=== PATIENT | male | born 1940 | race Caucasian/White ===

== ENCOUNTER 2019-05-20 13:28 | Outpatient (REF) | payer MEDICARE, OTHER, SELFPAY ==
[2019-05-20 14:24] LABS: HCT 48.1 % (40.0-50.0); HGB 16.7 g/dL (13.5-17.5); Mean Corp. HGB Concentration 34.7 g/dL (32.0-36.0); Mean Corpuscular Hemoglobin 31.1 pg (27.0-33.0); Mean Corpuscular Volume 89.6 fL (80-95); Mean Platelet Volume 10.4 fL (8.0-11.0); Platelet Count 230 x1000/uL (130-400); RBC 5.37 m/cumm (4.50-6.00); RBC Distribution Width 12.7 % (11.8-14.1); White Blood Cell Count 7.94 k/cumm (4.4-10.8)
[2019-05-20 14:40] LABS: Hemoglobin A1C 5.7 % (4.5-6.2)
[2019-05-20 22:07] LABS: ALT 39 U/L (12-78); AST 28 U/L (15-37); Alkaline Phosphatase 74 U/L (46-116); Anion Gap 12.1 mmol/L (3-11); BUN 21 mg/dL (7-18); Bilirubin, Total 0.6 mg/dL (0.2-1.0); CO2 23.9 mmol/L (21.0-32.0); CREATININE 1.19 mg/dL (0.70-1.30); Chloride 108 mmol/L (98-107); Estimated GFR 59.12 (mL/min/1.73m2); Folate 15.4 ng/mL (8.6-20.0); Glucose 130 mg/dL (70-100); Potassium 4.7 mmol/L (3.5-5.1); Sodium 144 mmol/L (136-145); Total Protein 6.9 g/dL (6.4-8.2); Vitamin B12 836 pg/mL (193-986)
== END 2019-05-20 13:48 ==
LOC: NCHCN 13:28
PROVIDERS: PCP Family Medicine; Visit Provider Family Medicine
DX: R53.83 Other fatigue (principal); R42 Dizziness and giddiness; R73.09 Other abnormal glucose
CPT/HCPCS: 80053; 85027; 82607; 82746; 83036

== ENCOUNTER 2020-02-14 13:47 | Outpatient (REF) | payer MEDICARE, OTHER, SELFPAY ==
[2020-02-15 09:45] LABS: PSA, Diagnostic 2.6 ng/mL (0.0-6.5)
== END 2020-02-14 14:07 ==
LOC: NCHCN 13:47
PROVIDERS: PCP Family Medicine; Visit Provider Family Medicine
DX: R36.1 Hematospermia (principal); Z12.5 Encounter for screening for malignant neoplasm of prostate
CPT/HCPCS: 84153

== ENCOUNTER 2020-05-09 15:21 | Outpatient (REF) | payer MEDICARE, OTHER, SELFPAY ==
[2020-05-09 15:49] LABS: Anion Gap 9.6 mmol/L (3-11); BUN 20 mg/dL (7-18); CO2 26.4 mmol/L (21.0-32.0); CREATININE 1.12 mg/dL (0.70-1.30); Calcium 9.6 mg/dL (8.5-10.1); Chloride 105 mmol/L (98-107); Glucose 141 mg/dL (74-106); Potassium 4.6 mmol/L (3.5-5.1); Sodium 141 mmol/L (136-145)
[2020-05-09 16:23] LABS: Hemoglobin A1C 5.8 % (3.8-5.6)
== END 2020-05-09 15:41 ==
LOC: NCHCN 15:21
PROVIDERS: PCP Family Medicine; Visit Provider Family Medicine
DX: I10 Essential (primary) hypertension (principal); R73.09 Other abnormal glucose
CPT/HCPCS: 80048; 83036

== ENCOUNTER 2021-05-10 02:52 | Outpatient (CLI) | payer MEDICARE, OTHER, SELFPAY ==
[2021-05-10 07:45] LABS: Abs Immature Grans 0.02 10^3/uL (0.0-0.06); Absolute Basophil Count 0.06 10^3/uL (0.0-0.2); Absolute Eosinophil Count 0.05 10^3/uL (0.0-0.7); Absolute Lymphocyte Count 1.17 10^3/uL (1.2-3.4); Absolute Monocyte Count 0.48 10^3/uL (0.1-0.8); Absolute Neutrophil Count 4.69 10^3/uL (1.2-6.7); Basophils % 0.9; Eosinophils % 0.8; HCT 47.3 % (40.0-50.0); HGB 16.1 g/dL (13.5-17.5); Immature Grans % 0.3; Lymphocytes % 18.1; MPV 9.6 fL (8.0-11.0); Monocytes % 7.4; Neutrophils % 72.5; Nucleated RBC 0 %; Platelet Count 217 10^3/uL (130-400); WBC 6.47 10^3/uL (4.4-10.8)
[2021-05-10 07:53] LABS: Bilirubin Negative (Negative); Blood Negative (Negative); Clarity Clear (Clear); Glucose Negative (Negative); Ketones Negative (Negative); Leukocyte Esterase Negative (Negative); Nitrite Negative (Negative); Specific Gravity 1.025 (1.005-1.025); Urobilinogen 0.2 EU/dL (Up TO 0.2); pH 5.5 (5-8)
[2021-05-10 07:55] LABS: Hemoglobin A1C 5.9 % (<5.7)
[2021-05-10 08:45] LABS: ALT 43 U/L (16-63); AST 26 U/L (15-37); Albumin 3.9 g/dL (3.4-5.0); Alkaline Phosphatase 68 U/L (46-116); Anion Gap 8.3 mmol/L (3-11); BUN 23 mg/dL (7-18); CO2 28.7 mmol/L (21.0-32.0); CREATININE 1.3 mg/dL (0.70-1.30); Calcium 9.3 mg/dL (8.5-10.1); Calculated LDL 98 mg/dL (<100); Chloride 106 mmol/L (98-107); Cholesterol 177 mg/dL (<200); Estimated GFR 53.12 (mL/min/1.73m2); Glucose 139 mg/dL (74-106); HDL Cholesterol 60 mg/dL (40-60); Potassium 4.4 mmol/L (3.5-5.1); Sodium 143 mmol/L (136-145); Total Protein 6.6 g/dL (6.4-8.2); Triglyceride 97 mg/dL (<150)
[2021-05-10 18:07] LABS: PSA, Screening 2.9 ng/mL (0.0-6.5)
== END 2021-05-10 02:53 | disposition home or self-care (01) ==
LOC: LBO 02:52
PROVIDERS: PCP Family Medicine; Visit Provider Family Medicine
DX: I10 Essential (primary) hypertension (principal); R73.03 Prediabetes; E78.5 Hyperlipidemia, unspecified; Z12.5 Encounter for screening for malignant neoplasm of prostate; Z00.00 Encounter for general adult medical examination without abnormal findings; E78.2 Mixed hyperlipidemia; R68.89 Other general symptoms and signs
CPT/HCPCS: 36415; 80053; 80061; 84153; 81003; 83036; 84443; 85025

== ENCOUNTER 2022-06-06 02:37 | Outpatient (CLI) | payer MEDICARE, OTHER, SELFPAY ==
[2022-06-06 07:22] LABS: Abs Immature Grans 0.02 10^3/uL (0.0-0.06); Absolute Basophil Count 0.03 10^3/uL (0.0-0.2); Absolute Eosinophil Count 0.06 10^3/uL (0.0-0.7); Absolute Lymphocyte Count 1.23 10^3/uL (1.2-3.4); Absolute Monocyte Count 0.57 10^3/uL (0.1-0.8); Absolute Neutrophil Count 5.11 10^3/uL (1.2-6.7); Basophils % 0.4; Eosinophils % 0.9; HCT 45.5 % (40.0-50.0); HGB 16.1 g/dL (13.5-17.5); Immature Grans % 0.3; Lymphocytes % 17.5; MCH 31.3 pg (27.0-33.0); MCHC 35.4 % (32.0-36.0); MCV 88 fL (80-95); MPV 9.5 fL (8.0-11.0); Monocytes % 8.1; Neutrophils % 72.8; Platelet Count 201 10^3/uL (130-400); RBC 5.15 10^6/uL (4.36-5.78); RDW 12.1 % (11.8-14.1); RDW-SD 39.1 fL; WBC 7.02 10^3/uL (4.4-10.8)
[2022-06-06 08:02] LABS: Hemoglobin A1C 5.7 % (<5.7)
[2022-06-06 09:00] LABS: Anion Gap 10.2 mmol/L (3-11); BUN 19 mg/dL (7-18); CO2 26.8 mmol/L (21.0-32.0); CREATININE 1.2 mg/dL (0.70-1.30); Calcium 9.1 mg/dL (8.5-10.1); Calculated LDL 84 mg/dL (<100); Chloride 108 mmol/L (98-107); Cholesterol 155 mg/dL (<200); Estimated GFR 58.11 (mL/min/1.73m2); Glucose 138 mg/dL (74-106); HDL Cholesterol 51 mg/dL (40-60); Potassium 3.9 mmol/L (3.5-5.1); Sodium 145 mmol/L (136-145); Triglyceride 101 mg/dL (<150)
== END 2022-06-06 02:38 | disposition home or self-care (01) ==
LOC: LBO 02:37
PROVIDERS: PCP Family Medicine; Visit Provider Family Medicine
DX: I10 Essential (primary) hypertension (principal); R73.03 Prediabetes; E78.5 Hyperlipidemia, unspecified
CPT/HCPCS: 36415; 80048; 80061; 83036; 85025

== ENCOUNTER → 2022-07-09 01:09 | Outpatient (CLI) | payer MEDICARE, OTHER, SELFPAY ==
--- NOTE | 2022-07-09 | DI.US_ITS ---
APPROVED REPORT EXAM: Comprehensive 2D, Doppler, and color-flow Echocardiogram Patient Location: Out-Patient Quality Control Checker: Jenna Fonseca RDCS (AE) Indications: Systolic heart murmur Other Information Study Quality: Adequate Conclusion Normal left ventricular wall thickness and chamber size. Estimated ejection fraction is 59%. Wall m otion is normal Normal right ventricular size and systolic function Both atria are normal in size Aortic valve is calcified, probably trileaflet. There is severe aortic stenosis with a peak gradient of 69, mean 44 mmHg. Calculated aortic valve area 0.87 cm??. There is trace aortic regurgitation Normal mitral valve with trace regurgitation Normal tricuspid valve with trace regurgitation. 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 The left ventricular systolic function is normal. The left ventric ular ejection fraction is within the normal range. There is normal left ventricular wall thickness. T here is normal LV segmental wall motion. There is no ventricular septal defect visualized. LVEF is 59 %. Right Ventricle The right ventricle is normal size. The right ventricular systolic function is normal. The RVSP is 29 .1 mmHg. Atria The left atrium size is normal. The right atrium size is normal. The interatrial septum is intact wit h no evidence for an atrial septal defect. Aortic Valve Aortic valve is calcified. Aortic valve is probably trileaflet. Severe aortic stenosis. Peak aortic v alve gradient is69.0_mmHg. Highest mean aortic valve gradient is 43.7mmHg. Calculated ANU by the cont inuity equation is .87cm2. Trace aortic regurgitation. Mitral Valve The mitral valve is normal in structure. No evidence of mitral valve stenosis. Trace mitral regurgita tion. Tricuspid Valve The tricuspid valve is normal in structure. There is no tricuspid valve stenosis. Trace tricuspid reg urgitation. Pulmonic Valve Pulmonic valve is not well visualized. There is no pulmonic valvular stenosis. There is no pulmonic v alvular regurgitation. Great Vessels The aortic root is normal in size. The ascending aorta is mildly dilated. Aortic arch is normal in ca liber. IVC is normal in size and collapses >50% with inspiration. Pericardium There is no pericardial effusion. 2D Dimensions IVSD d PLAX 1.04 cm M: 0.6-1.2 LV Vol A2C d MOD 95.8 mL LVPW d PLAX 1.02 cm M: 0.6 - 1.2 LV Vol A4C d MOD 102.5 mL LVID d PLAX 5.03 cm M: 4.2 - 5.8 LA vol/ BSA A2C s A-L 25.2 mL/m2 LVDs 3.55 cm M: 2.5 - 4.0 LA vol/ BSA A4C s A-L 19.7 mL/m2 Ao Root d 2.81 cm M: 3.1 - 3.7 LA Vol/ BSA Biplane s A-L 22.3 mL/m2 RA Area A4C 13.91 cm2 LA Area A4C s MOD 16.06 cm2 RA Vol/ BSA A4C s A-L 14.9 mL/m2 LA Area A2C s MOD 18.18 cm2 Ao Asc Diam d 3.90 cm M: 2.6 - 3.4 LV EF A4C MOD 58.1 % LV EF Teichholz 55.7 % LV EF A2C MOD 59.4 % LVEF (Ramon's) 59.94 % M: 52 - 72 LV EF Biplane MOD 59.9 % LV Volume 75.19 mL M: 62 - 150 SV 61.35 mL LV Volume Index 35.30 mL/m2 M: 34 - 74 SV Index 28.79 mL/m2 LV Vol Biplane MOD 102.4 mL FS 29.15 % M-Mode TAPSE 2.90 cm (M/F) >1.7 LV Diastology MV E' medial 0.072 (>0.07 m/s) E/A Ratio 0.5 LV E/e MED 7.80 (<14) MV E Vmax 0.56 (0.4-1.3 m/s) MV E' lateral 0.093 (>0.1 m/s) MV A Vmax 1.05 (0.4-1.3 m/s) LV E/e LAT 6.00 (<14) MV E/A Ratio 0.52 MV E/E' medial 7.82 MV E/E' lateral 6.04 Aortic Valve LVOT Area 3.57 cm2 AoV Area Vmax 0.87 cm2 LVOT Vmax 1.01 m/s AoV Area/ BSA (Vmax) 0.41 cm2/m2 LVOT Mean Steve. 0.65 m/s ANU Mean Steve. 0.73 cm2 LVOT Peak Grad 4.1 mmHg ANU Mean Steve. Index 0.34 cm2/m2 LVOT Mean Grad 2.0 mmHg AR DT 1758 msec LVOT VTI 0.213 m AR PHT 510 msec LVOT Diam s 2.10 cm AoV Vmax 4.15 m/s Velocity Ratio 0.24 AoV Mean Steve. 3.19 m/s AoV Peak Grad 69.0 mmHg LVOT SV 75.95 mL AoV Mean Grad 43.7 mmHg AoV VTI 0.821 m AoV Area VTI 0.92 cm2 AoV Area/ BSA (VTI) 0.43 cm/m2 Mitral Valve MV DT 500 (160-240 msec) MV PHT 145 msec MV Area PHT 1.52 cm2 MV VTI 0.242 m MV Area VTI 3.14 (4.0-6.0 cm2) Pulmonary Valve PV Vmax 1.35 (0.5-1.5 m/s) RVOT Peak Gr. 4.24 mmHg PV Peak Grad 7.3 mmHg RVOT Mean Gr. 1.95 mmHg PV Mean Grad 4.2 mmHg RVOT VTI 0.161 m PV VTI 0.222 m RVOT Vmax 1.03 m/s Tricuspid Valve TR Peak Grad 26.1 mmHg TR Vmax 2.56 m/s RA Pressure 3.00 mmHg RVSP (TR) 29.1 mmHg
== END ==
PROVIDERS: PCP Family Medicine; Visit Provider Family Medicine
DX: R01.1 Cardiac murmur, unspecified (principal)
CPT/HCPCS: 93306

== ENCOUNTER 2023-06-09 15:21 | Outpatient (CLI) | payer MEDICARE, OTHER, SELFPAY ==
[2023-06-09 12:13] LABS: Abs Immature Grans 0.01 10^3/uL (0.0-0.06); Absolute Basophil Count 0.07 10^3/uL (0.0-0.2); Absolute Eosinophil Count 0.06 10^3/uL (0.0-0.7); Absolute Lymphocyte Count 1.03 10^3/uL (1.2-3.4); Absolute Neutrophil Count 5.03 10^3/uL (1.2-6.7); Eosinophils % 0.9; HCT 45.7 % (40.0-50.0); Immature Grans % 0.1; Lymphocytes % 15.4; MCH 31.4 pg (27.0-33.0); MCV 90 fL (80-95); MPV 10.3 fL (8.0-11.0); Monocytes % 7.5; Neutrophils % 75.1; Platelet Count 174 10^3/uL (130-400); RDW 12.4 % (11.8-14.1); RDW-SD 40.6 fL
[2023-06-09 13:03] LABS: Hemoglobin A1C 5.8 % (<5.7)
[2023-06-09 13:04] LABS: ALT 37 U/L (16-63); AST 22 U/L (15-37); Albumin 3.7 g/dL (3.4-5.0); Alkaline Phosphatase 61 U/L (46-116); Anion Gap 9.4 mmol/L (3-11); BUN 28 mg/dL (7-18); CO2 25.6 mmol/L (21.0-32.0); CREATININE 1.5 mg/dL (0.70-1.30); Calcium 9.4 mg/dL (8.5-10.1); Chloride 108 mmol/L (98-107); Estimated GFR 46.19 (mL/min/1.73m2); Glucose 148 mg/dL (74-106); Potassium 4.2 mmol/L (3.5-5.1); Sodium 143 mmol/L (136-145); TSH (W/Ref FT4) 1.54 uIU/mL (0.36-3.74); Total Protein 6.7 g/dL (6.4-8.2)
[2023-06-10 10:37] LABS: PSA, Screening 3.4 ng/mL (<=6.5)
== END 2023-06-09 15:22 | disposition home or self-care (01) ==
LOC: LOS 15:26
PROVIDERS: PCP Family Medicine; Visit Provider Family Medicine
DX: R73.03 Prediabetes (principal); I10 Essential (primary) hypertension; E78.5 Hyperlipidemia, unspecified; Z00.00 Encounter for general adult medical examination without abnormal findings; C43.70 Malignant melanoma of unspecified lower limb, including hip
CPT/HCPCS: 36415; 80053; 84153; 83036; 84443; 85025

== ENCOUNTER 2023-07-09 02:46 | Outpatient (CLI) | payer MEDICARE, OTHER, SELFPAY ==
[2023-07-09 07:57] LABS: Abs Immature Grans 0.02 10^3/uL (0.0-0.06); Absolute Basophil Count 0.07 10^3/uL (0.0-0.2); Absolute Eosinophil Count 0.12 10^3/uL (0.0-0.7); Absolute Lymphocyte Count 1.45 10^3/uL (1.2-3.4); Absolute Monocyte Count 0.63 10^3/uL (0.1-0.8); Absolute Neutrophil Count 4.82 10^3/uL (1.2-6.7); Eosinophils % 1.7; HGB 15.9 g/dL (13.5-17.5); Immature Grans % 0.3; Lymphocytes % 20.4; MCH 30.5 pg (27.0-33.0); MCHC 34.6 % (32.0-36.0); MCV 88 fL (80-95); MPV 9.1 fL (8.0-11.0); Monocytes % 8.9; Neutrophils % 67.7; Platelet Count 170 10^3/uL (130-400); RBC 5.21 10^6/uL (4.36-5.78); RDW 12.4 % (11.8-14.1); RDW-SD 40.1 fL; WBC 7.11 10^3/uL (4.4-10.8)
[2023-07-09 08:40] LABS: ALT 32 U/L (16-63); AST 22 U/L (15-37); Albumin 3.7 g/dL (3.4-5.0); Alkaline Phosphatase 74 U/L (46-116); Anion Gap 8.9 mmol/L (3-11); BUN 27 mg/dL (7-18); Bilirubin, Total 0.5 mg/dL (0.2-1.0); CO2 26.1 mmol/L (21.0-32.0); CREATININE 1.4 mg/dL (0.70-1.30); Calcium 9.8 mg/dL (8.5-10.1); Chloride 110 mmol/L (98-107); Estimated GFR 50.18 (mL/min/1.73m2); Glucose 153 mg/dL (74-106); Potassium 4.4 mmol/L (3.5-5.1); Sodium 145 mmol/L (136-145); Total Protein 6.6 g/dL (6.4-8.2)
== END 2023-07-09 02:47 | disposition home or self-care (01) ==
LOC: LBO 02:46
PROVIDERS: PCP Family Medicine
DX: I35.0 Nonrheumatic aortic (valve) stenosis (principal)
CPT/HCPCS: 36415; 80053; 85025

== ENCOUNTER → 2023-07-31 08:45 | Outpatient (BNVA) | payer MEDICARE, OTHER, SELFPAY | PROVIDERS: PCP Family Medicine; Referring Provider Family Medicine; Visit Provider Nurse Practitioner Gerontology | DX: N40.1 Benign prostatic hyperplasia with lower urinary tract symptoms (principal); N32.89 Other specified disorders of bladder; N32.3 Diverticulum of bladder; I10 Essential (primary) hypertension | CPT/HCPCS: 81003; 99204 ==

== ENCOUNTER → 2023-09-10 03:20 | Outpatient (CLI) | payer MEDICARE, OTHER, SELFPAY ==
--- NOTE | 2023-09-10 08:00 | DI.CT_ITS ---
Exam(s) CT ABDOMEN PELVIS WO/W EXAM: CT ABDOMEN PELVIS WO/W CLINICAL HISTORY: abnl cta,bladder mass,bladder diverticula,n32.89,n32.3 TECHNIQUE: Imaging Protocol: Axial computed tomography images with coronal and sagittal reformatted images were created and reviewed CONTRAST MATERIAL: Intravenous: Omnipaque 350 Contrast volume:100 mL Oral: No COMPARISON: No exams were available for comparison FINDINGS: The examination is limited due to patient motion artifact. ABDOMEN: Lung Bases: Coronary artery calcification and/or stents. There is an aortic valve replacement. Liver: Normal density. There are several round homogeneously hypodense lesions in the liver consisten t with cysts. The largest measures 3.3 cm. Portal, Superior Mesenteric, and Splenic Veins: Unremarkable. Gallbladder and Biliary Tract: No radiodense calculus or dilation. Pancreas: Normal density, no abnormal calcifications or inflammatory process. Spleen: Normal. Adrenals: No masses seen. Kidneys: Normal size, contour and axis. No radiodense stones or obstructive uropathy. No masses seen. Abdominal Aorta: Abdominal portion non-dilated. Atherosclerosis. Bowel: There is diverticulosis of the colon but no evidence of acute diverticulitis. Appendix is unr emarkable. There is no evidence of bowel obstruction or bowel wall thickening. Peritoneal Cavity: No ascites, collection or mesenteric inflammatory response. No free air. Lymph Nodes: Within normal limits. Bones: Within normal limits for the patient's age. The patient has a left total hip replacement. Soft Tissues: Unremarkable. PELVIS: Bladder: There is diffuse thickening of the wall of the urinary bladder which is incompletely distend ed. There are at least 2 bladder diverticula present. One at the right lateral aspect and 1 at the anterior superior aspect of the urinary bladder. This may represent a urachal remnant. Reproductive Organs: The prostate gland is enlarged and impinges upon the base of the urinary bladder . Lymph Nodes: Within normal limits. Bones: Within normal limits for the patient's age. IMPRESSION: 1. There is an enlarged prostate gland which impinges upon the base of the urinary bladder. This may reflect prostatic hypertrophy but prostate mass cannot be excluded. 2. Urinary bladder diverticula. 3. Diffuse thickening of the wall of the urinary bladder. This may be due to chronic bladder outlet obstruction/neurogenic bladder. Cystitis or neoplasm cannot be entirely excluded. 4. No evidence of nephrolithiasis or hydronephrosis. 5. Hepatic cysts. Unexpected findings RADIATION DOSE DELIVERED: Total DLP Total DLP DATA REPOSITORY: All CT scans at this facility are submitted to the National Radiology Data Registry (NRDR) Dose Index Registry (DIR) with the [employer] (A[employer]). RADIATION OPTIMIZATION: All CT scans at this facility use at least one of these dose optimization te chniques: automated exposure control; mA and/or kV adjustment per patient size (includes targeted exa ms where dose is matched to clinical indication); or iterative reconstruction.
[2023-09-10] MEDS: Omnipaque 350 MG/ML 100 ML BTL IJ (12:23)
[2023-09-10] MEDS: Normal Saline - Diluent 50 ML VIAL 85 ML IJ (12:23)
[2023-09-10] MEDS: Normal Saline Flush 10 ML SYR IVP (12:24)
== END ==
PROVIDERS: PCP Family Medicine; Visit Provider Nurse Practitioner Gerontology
DX: N32.3 Diverticulum of bladder (principal); N32.89 Other specified disorders of bladder
CPT/HCPCS: 74178; J3490

== ENCOUNTER 2023-09-17 09:04 | Outpatient (RCR) | payer MEDICARE, OTHER, SELFPAY | END 2023-09-23 23:59 | disposition home or self-care (01) | LOC: CR 09:04 | PROVIDERS: PCP Family Medicine; Visit Provider Internal Medicine Cardiovascular Disease | DX: I35.0 Nonrheumatic aortic (valve) stenosis (principal); Z51.89 Encounter for other specified aftercare; Z95.4 Presence of other heart-valve replacement | CPT/HCPCS: S9472 ==

== ENCOUNTER 2023-09-19 15:59 | Outpatient (REF) | payer MEDICARE, OTHER, SELFPAY ==
[2023-09-19 15:06] LABS: Bilirubin Negative (Negative); Blood Trace-intact (Negative); Clarity Clear (Clear); Glucose 100 mg/dL (Negative); Ketones Negative (Negative); Leukocyte Esterase Small (Negative); Nitrite Negative (Negative); Specific Gravity 1.025 (1.005-1.025); Urobilinogen 0.2 mg/dL (Up to 0.2); pH 5.5 (5-8)
[2023-09-19 15:35] LABS: WBC >50 HPF (0-5)
[2023-09-19 15:36] LABS: Bacteria Moderate HPF (Negative); C & S Indicated? C&S Done As Ordered; Crystals Negative HPF (Negative); Epithelial Cells Rare HPF (Negative); Mucus Negative (Negative)
== END 2023-09-19 16:00 | disposition home or self-care (01) ==
LOC: NCHCN 15:59
PROVIDERS: PCP Family Medicine; Visit Provider Family Medicine
DX: R35.0 Frequency of micturition (principal); R50.9 Fever, unspecified
CPT/HCPCS: 87077; 81003; 81015; 87086; 87186

== ENCOUNTER → 2023-09-24 08:10 | Outpatient (BNVA) | payer MEDICARE, OTHER, SELFPAY | PROVIDERS: PCP Family Medicine; Referring Provider Family Medicine; Visit Provider Nurse Practitioner Gerontology | DX: R35.0 Frequency of micturition (principal); N32.3 Diverticulum of bladder; N32.89 Other specified disorders of bladder; I35.0 Nonrheumatic aortic (valve) stenosis | CPT/HCPCS: 99214 ==

== ENCOUNTER 2023-09-29 09:00 | Outpatient (RCR) | payer MEDICARE, OTHER, SELFPAY | END 2023-10-23 23:59 | disposition home or self-care (01) | LOC: CR 09:00 | PROVIDERS: PCP Family Medicine; Visit Provider Internal Medicine Cardiovascular Disease | DX: I25.10 Atherosclerotic heart disease of native coronary artery without angina pectoris (principal); Z95.2 Presence of prosthetic heart valve; Z51.89 Encounter for other specified aftercare | CPT/HCPCS: S9472 ==

== ENCOUNTER 2023-10-13 12:46 | Outpatient (REF) | payer MEDICARE, OTHER, SELFPAY ==
[2023-10-13 14:33] LABS: Bilirubin Negative (Negative); Blood Negative (Negative); Clarity Clear (Clear); Glucose Negative (Negative); Ketones Negative (Negative); Leukocyte Esterase Negative (Negative); Nitrite Negative (Negative); Specific Gravity 1.025 (1.005-1.025); Urobilinogen 0.2 mg/dL (Up to 0.2)
== END 2023-10-13 12:47 | disposition home or self-care (01) ==
LOC: LBN 12:46
PROVIDERS: PCP Family Medicine; Visit Provider Nurse Practitioner Gerontology
DX: R35.0 Frequency of micturition (principal)
CPT/HCPCS: 81003

== ENCOUNTER → 2023-12-02 08:39 | Outpatient (BNVA) | payer MEDICARE, OTHER, SELFPAY | PROVIDERS: PCP Family Medicine; Referring Provider Family Medicine; Visit Provider Urology | DX: N32.89 Other specified disorders of bladder (principal) | CPT/HCPCS: 52000; 81003 ==

== ENCOUNTER 2024-06-28 03:32 | Outpatient (CLI) | payer MEDICARE, OTHER, SELFPAY ==
[2024-06-28 12:59] LABS: Anion Gap 7.8 mmol/L (3-11); BUN 22 mg/dL (7-18); CO2 27.2 mmol/L (21.0-32.0); CREATININE 1.2 mg/dL (0.70-1.30); Calcium 9.9 mg/dL (8.5-10.1); Calculated LDL 89 mg/dL (<100); Chloride 106 mmol/L (98-107); Cholesterol 169 mg/dL (<200); Glucose 146 mg/dL (74-106); HDL Cholesterol 60 mg/dL (40-60); Potassium 4.1 mmol/L (3.5-5.1); Sodium 141 mmol/L (136-145); Triglyceride 104 mg/dL (<150)
[2024-06-29 17:57] LABS: Hemoglobin A1C 6.1 % (<5.7)
== END 2024-06-28 03:33 | disposition home or self-care (01) ==
LOC: LOS 03:32
PROVIDERS: PCP Family Medicine; Visit Provider Family Medicine
DX: E78.5 Hyperlipidemia, unspecified (principal); R73.03 Prediabetes
CPT/HCPCS: 36415; 80048; 80061; 83036

== ENCOUNTER 2025-03-16 02:30 | Outpatient (CLI) | payer MEDICARE, OTHER, SELFPAY ==
--- NOTE | 2025-03-16 | DI.RAD_ITS ---
Exam(s) XR HIP LT COMPLETE AP PELVIS EXAM: XR HIP LT COMPLETE AP PELVIS CLINICAL HISTORY: LT HIP PAIN,M25.552. TECHNIQUE: 2D digital imaging was performed. Three images were obtained. AP pelvis, AP left hip and lateral left hip views were obtained. COMPARISON: CT CT ABDOMEN PELVIS WO/W from 09/10/2023 FINDINGS: BONES: There are stable post operative changes of a left total hip arthroplasty present. No fracture or dislocation. JOINTS: The orthopedic hardware is in good position. No evidence of hardware loosening. SOFT TISSUE: Atherosclerotic calcification is present. IMPRESSION: Stable left total hip arthroplasty. DATA REPOSITORY: RADIATION DOSE DELIVERED:
== END 2025-03-16 02:50 ==
PROVIDERS: PCP Family Medicine; Visit Provider Family Medicine
DX: M25.552 Pain in left hip (principal); Z96.642 Presence of left artificial hip joint
CPT/HCPCS: 73502

== ENCOUNTER 2025-04-09 10:21 | Emergency (ER) | payer MEDICARE, OTHER, SELFPAY ==
[2025-04-09] VITALS (27 sets, daily range): BP systolic 157–204; BP diastolic 62–102; PULSE 52–99; RESP 11–28; TEMP 36.7; O2SAT 95–99
--- NOTE | 2025-04-09 10:15 | RT.EKG_ITS ---
APPROVED REPORT Exam: Resting ECG Reason for Exam: syncope Patient Location: E HR:63 bpm ECG Measurements Heart Rate 63 AXIS RI [id number] P [id number] QRSd 158 QRS 13 QT 484 T 135 QTc 498 Conclusion Atrial fibrillation...? atrial activity Left bundle branch block...QRSd>120, broad/notched R ST elevation secondary to IVCD...Multiple VCG criteria No Occlusion WI
--- NOTE | 2025-04-09 10:37 | ED.PROG_ITS ---
Date of service: 04/09/25 Time of Service: 10:37 Medical Decision Making I saw this patient in conjunction with his advanced practice provider. Please see her note for complete details. His echo is reassuring against acute heart failure. Quality:[facility] Health Related Social Needs: No Data to Display Discharge Plan Disposition Patient Disposition: Against Medical Advice Condition: Stable Discharge Details Clinical Impression: Atrial fibrillation, new onset, Episode of syncope Primary Care Provider: Asuncion Muñoz ED Provider: Cecilia Hubbard Home Meds and New Rx's Prescriptions: New Eliquis 5 mg tablet 5 mg PO BID Qty: 30 3RF Rx Instructions: Take 1 tablet by mouth twice daily Continued amlodipine 5 mg tablet 5 mg PO DAILY aspirin [Adult Aspirin Regimen] 81 mg tablet,delayed release (DR/EC) 81 mg PO DAILY simvastatin 40 mg tablet 40 mg PO DAILY losartan 25 mg tablet 25 mg PO DAILY multivitamin Tablet 1 tab PO DAILY glucosamine HCl 500 mg tablet 500 mg PO DAILY Rx Instructions: administer with a meal Discharge Instructions Instructions: Fainting, Adult ED, Atrial Fibrillation and Atrial Flutter ED Additional Instructions: At this time you have opted to leave the hospital AGAINST MEDICAL ADVICE. Admission for observation was recommended at this time which you declined. At this time no evidence for heart attack. However you do have a new cardiac dysrhythmia called atrial fibrillation. You also have a left bundle branch block and frequent PVCs. A CT was done of your chest which shows multiple lung nodules, a enlarged thyroid which also needs to be followed up with with an ultrasound. You will be given Eliquis which is a blood thinner to start 5 mg twice daily. Please follow-up with your primary care provider within the next 3 to 5 days to discuss these findings. If you change your mind or you have another syncopal or fainting episode please return to the emergency department. A Holter monitor for your heart was ordered they should be contacting you to place that. Follow up with primary care provider in 3-5 days. Return to ED sooner if any worsening or concerns. Thank you for allowing us to care for you today. Referrals: Asuncion Muñoz MD [Primary Care Provider] - 5 days Discharge Orders Other Ambulatory Orders: Holter Monitor (Routine) Timeframe: 3 Days Facility: [facility] - Location: Respiratory Therapy Ordered By: Cecilia Hubbard POCUS Exam (ED) Limited Cardiac Exam DATE OF EXAM: 04/09/25 TIME OF EXAM: 11:54 PROVIDER THAT PERFORMED THE STUDY: Reynaldo Pruett IS THIS A REPEAT EXAM DURING THIS ENCOUNTER: no REASON FOR EXAM: Syncope VISUALIZED STRUCTURES: Four Chambers, Left ventricle and LVOT VIEW OBTAINED: Apical 4-Chamber, Parasternal long-axis and Subxiphoid PERTINENT FINDINGS/IMPRESSION: No pericardial effusion and No RV dilation DIFFERENTIAL DIAGNOSES: Aortic outflow track less than 4 cm, good squeeze, RV less than LV, no significant pericardial effusion. No significant B-lines bilaterally. Exam complete
--- NOTE | 2025-04-09 10:57 | ED.GENADUL_ITS ---
Discharge Plan Disposition Patient Disposition: Against Medical Advice Condition: Stable Discharge Details Clinical Impression: Atrial fibrillation, new onset, Episode of syncope, Incidental lung nodule, Enlarged thyroid gland Primary Care Provider: Asuncion Muñoz ED Provider: Cecilia Hubbard Home Meds and New Rx's Prescriptions: New Eliquis 5 mg tablet 5 mg PO BID Qty: 30 3RF Rx Instructions: Take 1 tablet by mouth twice daily Continued amlodipine 5 mg tablet 5 mg PO DAILY aspirin [Adult Aspirin Regimen] 81 mg tablet,delayed release (DR/EC) 81 mg PO DAILY simvastatin 40 mg tablet 40 mg PO DAILY losartan 25 mg tablet 25 mg PO DAILY multivitamin Tablet 1 tab PO DAILY glucosamine HCl 500 mg tablet 500 mg PO DAILY Rx Instructions: administer with a meal Discharge Instructions Instructions: Fainting, Adult ED, Atrial Fibrillation and Atrial Flutter ED Additional Instructions: At this time you have opted to leave the hospital AGAINST MEDICAL ADVICE. Admission for observation was recommended at this time which you declined. At this time no evidence for heart attack. However you do have a new cardiac dysrhythmia called atrial fibrillation. You also have a left bundle branch block and frequent PVCs. A CT was done of your chest which shows multiple lung nodules, a enlarged thyroid which also needs to be followed up with with an ultrasound. You will be given Eliquis which is a blood thinner to start 5 mg twice daily. Please follow-up with your primary care provider within the next 3 to 5 days to discuss these findings. If you change your mind or you have another syncopal or fainting episode please return to the emergency department. A Holter monitor for your heart was ordered they should be contacting you to place that. Follow up with primary care provider in 3-5 days. Return to ED sooner if any worsening or concerns. Thank you for allowing us to care for you today. Referrals: Asuncion Muñoz MD [Primary Care Provider] - 5 days Discharge Orders Other Ambulatory Orders: Holter Monitor (Routine) Timeframe: 3 Days Facility: [facility] - Location: Respiratory Therapy Ordered By: Cecilia Hubbard [facility] General Mode of arrival: ambulatory . Date/Time Provider Initiated Documentation: 04/09/25 10:33 . Limitations to Documentation: no limitations . Information obtained by: patient, RN notes reviewed and old records reviewed . HPI Narrative: 84-year-old male with a past medical history of a aortic valve replacement presents to the ER company by his son after an apparent episode where he became unresponsive while doing some yard work. Patient states he sat down and was feeling little tired and then does not remember people trying to wake him up. They did call 911 EMS was on scene at that time patient had woken up and was feeling better. Patient states that he was initially just a little lightheaded but denies any chest pain shortness of breath, headache blurry vision weakness tingling or any other associated symptoms. According to the family he was sitting slumped over not responding to his name being called for approximately a minute. He did take his normal medications this morning. On arrival he is ANO x 4 denying any complaints at this time. Related Data Home Medications ?Medication ?Instructions ?Recorded ?Confirmed glucosamine HCl 500 mg tablet 500 mg PO DAILY 07/29/23 04/09/25 losartan 25 mg tablet 25 mg PO DAILY 07/29/23 04/09/25 multivitamin 1 tab PO DAILY 07/29/23 04/09/25 simvastatin 40 mg tablet 40 mg PO DAILY 07/29/23 04/09/25 amlodipine 5 mg tablet 5 mg PO DAILY 09/24/23 04/09/25 aspirin 81 mg tablet,delayed 81 mg PO DAILY 03/17/25 04/09/25 release (Adult Aspirin Regimen) apixaban 5 mg tablet (Eliquis) 5 mg PO BID Atrial Fibrillation 04/09/25 #30 tabs Previous Rx's ?Medication ?Instructions ?Recorded apixaban 5 mg tablet (Eliquis) 5 mg PO BID Atrial Fibrillation 04/09/25 #30 tabs Allergies Allergy/AdvReac Type Severity Reaction Status Date / Time lisinopril Allergy Mild Unknown Verified 04/09/25 10:38 NSAIDS (Non-Steroidal Allergy Unknown Verified 04/09/25 10:38 Anti-Inflamma penicillin V (Penicillin V) Allergy Unknown Verified 04/09/25 10:38 General Stated Complaint: Dizzy/Sync DANIKA: 3 Review of Systems All systems reviewed & are unremarkable except as noted in HPI and below Constitutional Constitutional: Reports as per HPI and Denies headache(s) ENT Ears, Nose, Mouth, and Throat: Denies headache(s) Cardiovascular Cardiovascular: Denies chest pain and Reports syncope Neurologic Neurologic: Reports as per HPI, Reports syncope and Denies headache(s) Exam Narrative Exam Narrative: Constitutional: Alert and oriented x3. Appears stated age. Normal body habitus. Head: Normocephalic, no trauma. Eyes: Pupils PERRL, Red reflex noted, EOM's intact. Eyelids symmetrical without lesions, discharge, or swelling. ENT: Bilateral TM's WNL, External ear normal to inspection, no mastoid TTP, swelling, or erythema, Nasal turbinates WNL, no nasal discharge. Normal dentition, Posterior pharynx WNL, no exudate. Chest: Regular rate and rhythym with frequent PVCs, Normal S1, S2, distal pulses intact. Resp: Lungs clear to auscultation bilaterally, no wheezes, rales, or rhonchi. Abdomen: Soft, non-distended, Normoactive bowel sounds all 4 quads. Musculoskeletal: Normal gait, Moves all 4 extremities without difficulty. Skin: No suspicious rashes or lesions. Capillary refill less than 2 sec. Neurologic: Cranial nerves II-XII intact. Alert and oriented x 3. Motor: No deficits noted. Sensory: Intact bilaterally all 4 extremities. Hematologic/Lymphatic: No ecchymosis, no lymphadenopathy. Course Vital Signs Vital signs: Vital Signs Temperature 36.7 C 04/09/25 10:31 Pulse 69 04/09/25 10:31 Respiratory Rate 18 04/09/25 10:31 Blood Pressure 165/79 H 04/09/25 10:31 Pulse Oximetry 98 04/09/25 10:31 Temperature 36.7 C 04/09/25 10:31 Temperature Source Oral 04/09/25 10:31 Pulse 69 04/09/25 10:31 Respiratory Rate 18 04/09/25 10:31 Blood Pressure 165/79 H 04/09/25 10:31 Blood Pressure Position Sitting 04/09/25 10:31 Pulse Oximetry 98 04/09/25 10:31 Oxygen Delivery Method Room Air 04/09/25 10:31 Oxygen Flow Rate 0 04/09/25 10:31 Pain Level 0 04/09/25 10:31 Medical Decision Making 84-year-old male with a past medical history of a aortic valve replacement presents to the ER company by his son after an apparent episode where he became unresponsive while doing some yard work. Patient states he sat down and was feeling little tired and then does not remember people trying to wake him up. They did call 911 EMS was on scene at that time patient had woken up and was feeling better. Patient states that he was initially just a little lightheaded but denies any chest pain shortness of breath, headache blurry vision weakness tingling or any other associated symptoms. According to the family he was sitting slumped over not responding to his name being called for approximately a minute. He did take his normal medications this morning. On arrival he is ANO x 4 denying any complaints at this time. EKG was reviewed by myself and Dr. Pruett ER attending, no old EKG available for review in our system however there is no old EKG available from 39 years ago at [facility]. No recent EKG changes including atrial A-fib and frequent PVCs. Cardiac workup ordered including serial troponins, chest x-ray Initial troponin within normal limits is 13, no leukocytosis, sodium potassium within normal limits BUN 21 creatinine 1.3 GFR 54 glucose 216. Urinalysis shows trace ketones and glucose. Chest x-ray shows a density in the left lateral lung area recommending a CT scan of the chest with contrast. Will order that. Discussed with patient that I would like to speak with cardiology and they might recommend admission for observation. 1225: [facility] transfer center contacted: Cardiology to call me back. CT has resulted shows no evidence for PE there is multiple nodules in the lungs. Also noted is the ascending thoracic aorta measuring 4.6 x 4.3 cm. Another incidental finding including a left lobe thyroid gland which looks heterogenous and enlarged, they recommend a nonemergent thyroid ultrasound. TSH with refractory T4 added on the labs. Second troponin has come back flat at 13 1301: Yanet SINHA recommends Admission and Holter monitor upon discharge, she also recommends starting Eliquis 5mg BID, she doesn't recommend rate control at this time, but does recommend trending Troponins q6 hours. She recommends reconnecting if up-trending Troponins, or any changes in patient condition. Will order Eliquis and contact Hospitalist. Spoke with patient's daughter Halie and patient regarding CT findings, recommendation for admission and follow-up care and my discussion with cardiology. He is agreeable to be admitted into the hospital for observation at this time. I did discuss the multiple lung nodules and enlarged thyroid with them as well. Spoke with Dr. Rodriguez with Hospitalist who agrees to come and see patient for eval in ED. 1345: Dr. Rodriguez here in ED for eval. After extensive discussion and eval with Dr. Rodriguez with patient and family I was informed that patient is requesting to go home. I did verify with patient's daughter and patient that they will be leaving AGAINST MEDICAL ADVICE as they would prefer to continue the work up at an outpatient basis. I did encourage them to stay and discussed risks versus benefits. Will discharge them with Eliquis and will order a outpatient Holter monitor. Patient requesting to leave AMA. The patient appears clinically sober and is not under the influence of any known substances. Discussed risks and benefits with patient. Patient verbalizes understanding of situation and the risks of leaving including worsening condition, developing disability, including but not limited to . Discussed results of labs and imaging, if they were performed and recommendations for further treatment and/or observation. The patient verbalizes understanding of the results discussed. Every effort was made to involve family and situation discussed. At this time patient has opted to leave against medical advice. Patient is alert and oriented and has the capacity to make own decisions. This text was generated using Edvertation system, please disregard any oddities of phrase or misspellings. Medical Records Medical records reviewed: Yes I reviewed the patient's medical records. Imaging Data Radiologic Study: Imaging: X-Ray Radiologist's impression: CLINICAL HISTORY: Syncope TECHNIQUE: 2D digital imaging was performed of the chest. Two images were obtained. PA and lateral views were obtained. COMPARISON: No exams were available for comparison FINDINGS: MEDIASTINUM: Normal. HEART: Normal. There is an aortic valve replacement. PULMONARY VASCULATURE: Normal. LUNGS: There is a 1.2 cm ovoid density in the lateral aspect of the left mid lung on the frontal view. No focal consolidating infiltrates are present. PLEURAL SPACE: No pleural effusion or pneumothorax. BONE:Within normal limits for the patient's age. OTHER FINDINGS:Normal. IMPRESSION: 1. No acute pulmonary findings. 2. 1.2 cm ovoid density in the left mid lung. A CT scan of the chest with contrast is recommended for further evaluation. Radiologic Study #2: Imaging: CT Scan Radiologist's impression: FINDINGS: Tracheobronchial tree: Patent where visualized. No bronchiectasis. Pulmonary parenchyma: There is a 1.2 x 1.2 cm nodule in the lateral aspect of the left upper lobe (series 12, image 81). This corresponds to the finding on the chest x-ray. There is a 0.9 x 0.8 cm nodule in the right lower lobe (series 12, image 97). There is a 5 mm nodule in the left lower lobe (series 12, image 108). The nodules are homogeneous and show no internal calcification or enh ancement. No focal consolidating infiltrates are present. Pulmonary Arteries: No evidence of filling defect to suggest pulmonary emboli. Mediastinum and Niru: No dominant adenopathy or fluid collection. The esophagus is unremarkable. Visualized thyroid gland: The left lobe of the thyroid gland is enlarged and extends into the superior mediastinum. It is heterogeneous with a suggestion of a large nodule. Nonemergent thyroid ultrasound is requested for further evaluation. Pleura: No effusion or pneumothorax. Heart: The heart is not dilated. Coronary artery calcification is present. There is an aortic valve replacement. No pericardial effusion. Aorta: The ascending thoracic aorta measures 4.6 x 4.3 cm. Atherosclerotic calcification is present. Due to the timing of the bolus, the thoracic aorta is suboptimally opacified for evaluation of dissection. Upper abdomen: There are stable hepatic cysts. No follow-up is recommended. Soft tissues: Unremarkable. Bones: Within normal limits for the patient's age.No significant changes are seen in the bones. IMPRESSION: 1. No evidence of a pulmonary embolism. 2. Ascending thoracic aorta measures 4.6 x 4.3 cm. Atherosclerotic calcification is present. 3. Three pulmonary nodules. The largest is in the left lung measuring 1.2 cm. This corresponds to the chest x-ray finding. Metastatic disease cannot be excluded. Consider 3 month follow-up, workup with combined PET and CT, tissue sampling or a combination there of. Any these may be appropriate depending on the size, morphology,: Orbit your other factors. 4. Heterogeneous left lobe of the thyroid gland. Nonemergent thyroid ultrasound is recommended for further evaluation. Lab Data Lab results reviewed: Yes I reviewed the patient's lab results. Labs: Laboratory Tests Range/Units 04/09/25 04/09/25 04/09/25 10:50 11:34 11:53 WBC (4.4-10.8) 10^3/uL 7.56 RBC (4.36-5.78) 10^6/uL 4.78 Hgb (13.5-17.5) g/dL 14.7 Hct (40.0-50.0) % 43.1 MCV (80-95) fL 90 MCH (27.0-33.0) pg 30.8 MCHC (32.0-36.0) % 34.1 RDW (11.8-14.1) % 12.4 Plt Count (130-400) 10^3/uL 189 MPV (8.0-11.0) fL 9.5 Immature Gran % % 0.5 Neutrophils % % 77.2 Lymphocytes % % 14.2 Monocytes % % 6.6 Eosinophils % % 0.7 Basophils % % 0.8 Nucleated RBC % (0.0-0.3) % 0.0 Absolute Neutrophils (1.2-6.7) 10^3/uL 5.84 Absolute Lymphocytes (1.2-3.4) 10^3/uL 1.07 L Absolute Monocytes (0.1-0.8) 10^3/uL 0.50 Absolute Eosinophils (0.0-0.7) 10^3/uL 0.05 Absolute Basophils (0.0-0.2) 10^3/uL 0.06 Sodium (136-145) mmol/L 139 Potassium (3.5-5.1) mmol/L 4.1 Chloride (98-107) mmol/L 103 Carbon Dioxide (21.0-32.0) mmol/L 26.3 Anion Gap (3-11) mmol/L 9.7 BUN (7-18) mg/dL 21 H Creatinine (0.70-1.30) mg/dL 1.3 Est GFR (CKD-EPI 2020) (mL/min/1.73m2) 54.17 Glucose (74-106) mg/dL 216 H Calcium (8.5-10.1) mg/dL 9.4 Magnesium (1.8-2.4) mg/dL 1.8 Total Bilirubin (0.2-1.0) mg/dL 0.8 AST (15-37) U/L 23 ALT (16-63) U/L 36 Alkaline Phosphatase (46-116) U/L 78 Troponin I (<or=76) ng/L 13 13 Total Protein (6.4-8.2) g/dL 7.0 Albumin (3.4-5.0) g/dL 3.8 Urine Color (Yellow) Yellow Urine Clarity (Clear) Clear Urine pH (5-8) 5.0 Ur Specific [place] (1.005-1.025) >= 1.030 H Urine Protein (Neg-Trace) mg/dL Negative Urine Ketones (Negative) mg/dL Trace H Urine Blood (Negative) Negative Urine Nitrite (Negative) Negative Urine Bilirubin (Negative) Negative Urine Urobilinogen (Up to 0.2) mg/dL 0.2 Ur Leukocyte Esterase (Negative) Negative Urine Glucose (Negative) mg/dL 100 H Quality:SDOH Health Related Social Needs: No Data to Display PFSH All Active Problems (Updated 04/09/25 @ 14:55 by Cecilia Hubbard NP) Enlarged thyroid gland (Acute) Incidental lung nodule (Acute) Episode of syncope (Chronic) Atrial fibrillation, new onset (Acute) Diverticula, bladder (Acute) Allergic rhinitis (Acute) 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
[2025-04-09 11:03] LABS: Abs Immature Grans 0.04 10^3/uL (0.0-0.06); Absolute Basophil Count 0.06 10^3/uL (0.0-0.2); Absolute Eosinophil Count 0.05 10^3/uL (0.0-0.7); Absolute Lymphocyte Count 1.07 10^3/uL (1.2-3.4); Absolute Neutrophil Count 5.84 10^3/uL (1.2-6.7); Basophils % 0.8 %; Eosinophils % 0.7 %; HCT 43.1 % (40.0-50.0); HGB 14.7 g/dL (13.5-17.5); Immature Grans % 0.5 %; Lymphocytes % 14.2 %; MCH 30.8 pg (27.0-33.0); MCHC 34.1 % (32.0-36.0); MCV 90 fL (80-95); MPV 9.5 fL (8.0-11.0); Monocytes % 6.6 %; Neutrophils % 77.2 %; Platelet Count 189 10^3/uL (130-400); RBC 4.78 10^6/uL (4.36-5.78); RDW 12.4 % (11.8-14.1); RDW-SD 40.3 fL; WBC 7.56 10^3/uL (4.4-10.8)
[2025-04-09 11:19] LABS: ALT 36 U/L (16-63); AST 23 U/L (15-37); Albumin 3.8 g/dL (3.4-5.0); Alkaline Phosphatase 78 U/L (46-116); Anion Gap 9.7 mmol/L (3-11); BUN 21 mg/dL (7-18); Bilirubin, Total 0.8 mg/dL (0.2-1.0); CO2 26.3 mmol/L (21.0-32.0); CREATININE 1.3 mg/dL (0.70-1.30); Calcium 9.4 mg/dL (8.5-10.1); Chloride 103 mmol/L (98-107); Estimated GFR 54.17 (mL/min/1.73m2); Glucose 216 mg/dL (74-106); Magnesium 1.8 mg/dL (1.8-2.4); Potassium 4.1 mmol/L (3.5-5.1); Sodium 139 mmol/L (136-145); Troponin I 13 ng/L (<or=76)
--- NOTE | 2025-04-09 11:21 | DI.RAD_ITS ---
Exam(s) XR CHEST 2V PA LATERAL EXAM: XR CHEST 2V PA LATERAL CLINICAL HISTORY: Syncope TECHNIQUE: 2D digital imaging was performed of the chest. Two images were obtained. PA and lateral views were obtained. COMPARISON: No exams were available for comparison FINDINGS: MEDIASTINUM: Normal. HEART: Normal. There is an aortic valve replacement. PULMONARY VASCULATURE: Normal. LUNGS: There is a 1.2 cm ovoid density in the lateral aspect of the left mid lung on the frontal view . No focal consolidating infiltrates are present. PLEURAL SPACE: No pleural effusion or pneumothorax. BONE:Within normal limits for the patient's age. OTHER FINDINGS:Normal. IMPRESSION: 1. No acute pulmonary findings. 2. 1.2 cm ovoid density in the left mid lung. A CT scan of the chest with contrast is recommended fo r further evaluation. Unexpected findings DATA REPOSITORY: RADIATION DOSE DELIVERED:
[2025-04-09 11:46] LABS: Bilirubin Negative (Negative); Blood Negative (Negative); Clarity Clear (Clear); Glucose 100 mg/dL (Negative); Ketones Trace mg/dL (Negative); Leukocyte Esterase Negative (Negative); Nitrite Negative (Negative); Specific Gravity >= 1.030 (1.005-1.025); Urobilinogen 0.2 mg/dL (Up to 0.2)
--- NOTE | 2025-04-09 12:17 | DI.CT_ITS ---
Exam(s) CT CHEST PE CTA EXAM: CT CHEST PE CTA CLINICAL HISTORY: Syncope, eval density. TECHNIQUE: Imaging Protocol: Axial CT angiography was performed with multi-slice acquisition and mu lti-planar and/or 3D reconstructions. Lung Computer Aided Detection (CAD) was utilized. CONTRAST MATERIAL: Intravenous: Omnipaque 350 contrast volume:85 mL COMPARISON: CT CT ABDOMEN PELVIS WO/W from 09/10/2023 CR XR CHEST 2V PA LATERAL from 04/09/2025 FINDINGS: Tracheobronchial tree: Patent where visualized. No bronchiectasis. Pulmonary parenchyma: There is a 1.2 x 1.2 cm nodule in the lateral aspect of the left upper lobe (se toi 12, image 81). This corresponds to the finding on the chest x-ray. There is a 0.9 x 0.8 cm nod ule in the right lower lobe (series 12, image 97). There is a 5 mm nodule in the left lower lobe (se toi 12, image 108). The nodules are homogeneous and show no internal calcification or enhancement. No focal consolidating infiltrates are present. Pulmonary Arteries: No evidence of filling defect to suggest pulmonary emboli. Mediastinum and Niru: No dominant adenopathy or fluid collection. The esophagus is unremarkable. Visualized thyroid gland: The left lobe of the thyroid gland is enlarged and extends into the superio r mediastinum. It is heterogeneous with a suggestion of a large nodule. Nonemergent thyroid ultraso und is requested for further evaluation. Pleura: No effusion or pneumothorax. Heart: The heart is not dilated. Coronary artery calcification is present. There is an aortic valve replacement. No pericardial effusion. Aorta: The ascending thoracic aorta measures 4.6 x 4.3 cm. Atherosclerotic calcification is present. Due to the timing of the bolus, the thoracic aorta is suboptimally opacified for evaluation of diss ection. Upper abdomen: There are stable hepatic cysts. No follow-up is recommended. Soft tissues: Unremarkable. Bones: Within normal limits for the patient's age.No significant changes are seen in the bones. IMPRESSION: 1. No evidence of a pulmonary embolism. 2. Ascending thoracic aorta measures 4.6 x 4.3 cm. Atherosclerotic calcification is present. 3. Three pulmonary nodules. The largest is in the left lung measuring 1.2 cm. This corresponds to t he chest x-ray finding. Metastatic disease cannot be excluded. Consider 3 month follow-up, workup w ith combined PET and CT, tissue sampling or a combination there of. Any these may be appropriate dep ending on the size, morphology,: Orbit your other factors. 4. Heterogeneous left lobe of the thyroid gland. Nonemergent thyroid ultrasound is recommended for f urther evaluation. Unexpected findings RADIATION DOSE DELIVERED: 170.39mGy.cm Total DLP DATA REPOSITORY: All CT scans at this facility are submitted to the National Radiology Data Registry (NRDR) Dose Index Registry (DIR) with the [employer] (ACR). RADIATION OPTIMIZATION: All CT scans at this facility use at least one of these dose optimization te chniques: automated exposure control; mA and/or kV adjustment per patient size (includes targeted exa ms where dose is matched to clinical indication); or iterative reconstruction.
[2025-04-09] MEDS: Omnipaque 350 MG/ML 100 ML BTL 85 ML IJ (12:18)
[2025-04-09] MEDS: Normal Saline - Diluent 50 ML VIAL IJ (12:18)
[2025-04-09 12:33] LABS: Troponin I 13 ng/L (<or=76)
[2025-04-09 13:36] LABS: TSH (W/Ref FT4) 0.78 uIU/mL (0.36-3.74)
[2025-04-09 13:51] LABS: Troponin I 16 ng/L (<or=76)
[2025-04-09] MEDS: Apixaban 5 MG TAB 10 MG PO (13:59)
--- NOTE | 2025-04-09 14:13 | CE_ITS ---
Date of service: 04/09/25 Time of Service: 14:13 Event Note: This is an 84-year-old gentleman who we are seeing in with consultation due to an episode of syncope. While he was in the ED he was noted to have a flutter. Please review ED notes for the particulars of the syncopal episode. Our ED staff reached out to cardiology in [facility] who recommended Eliquis as well as a Holter monitor. While he was here in the ED though a CT scan was done which was indicative of lung nodules as well as a thyroid nodule. 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 In my discussion with the daughter she states that he has had episodes of melanoma in the past. The patient was very anxious to be discharged and there was also concern about radiation doses. The patient's renal function was appropriate for contrast originally but the patient and family were both concerned about acute kidney injury as well as the dose of radiation. As the patient's rate was controlled and he will be sent home with Eliquis and a Holter monitor I agreed with the family that the rest of this could be done as an outpatient setting. I do strongly recommend further workup for lung nodules as well as a thyroid nodule. Strong consider an MRI versus CT scan for evaluation of his brain to rule out metastasis. Of note, the patient's family states that he did have an echo in August and this was reported as normal. I do not have access to this data at this time. I reviewed his laboratory work, his chest x-ray, his CT chest. In reviewing his lab data there is some concern about occult diabetes and recommended following up with an A1c in the outpatient setting. He does have ketones in his urine as well as glucosuria On physical exam the patient has: Normocephalic atraumatic mucous membranes moist oropharynx is clear Neck no lymphadenopathy no JVD no thyromegaly Cardiovascular irregularly irregular 2 out of 6 systolic ejection murmur Lungs clear to auscultation bilaterally with good air exchange Abdomen soft nondistended Extremities no sinus clubbing or edema Time Spent with Patient Time spent in critical care(minutes): no critical care time. This is for documentation reasons only Time Spent Included: Other
[2025-04-11 17:24] LABS: Hemoglobin A1C 6.2 % (<5.7)
[2025-04-11 23:04] LABS: PSA, Diagnostic 3.3 ng/mL (<=6.5)
== END 2025-04-09 14:44 | disposition left against medical advice (07) ==
PROVIDERS: Emergency Provider Registered Nurse Emergency; PCP Family Medicine
DX: R55 Syncope and collapse (principal); I48.91 Unspecified atrial fibrillation; I44.7 Left bundle-branch block, unspecified; E04.1 Nontoxic single thyroid nodule; R91.8 Other nonspecific abnormal finding of lung field; Z95.2 Presence of prosthetic heart valve; Z79.82 Long term (current) use of aspirin; Z53.29 Procedure and treatment not carried out because of patient's decision for other reasons
CPT/HCPCS: 00123; 36415; 71275; 80053; 93005; 93308; 99285; 71046; 81003; 83036; 83735; 84153; 84443; 84484; 85025; 93010; J3490

== ENCOUNTER 2025-04-14 07:59 | Outpatient (RCR) | payer MEDICARE, OTHER, SELFPAY | END 2025-04-23 23:59 | disposition home or self-care (01) | LOC: CARDOPNVT 07:59 | PROVIDERS: PCP Family Medicine; Visit Provider Internal Medicine Cardiovascular Disease | DX: R55 Syncope and collapse (principal); I48.91 Unspecified atrial fibrillation; I63.9 Cerebral infarction, unspecified | CPT/HCPCS: 93227; 93225; 93226 ==

== ENCOUNTER 2025-04-22 09:30 | Observation (INO) | payer MEDICARE, OTHER, SELFPAY ==
[2025-04-22] VITALS (8 sets, daily range): BP systolic 151–187; BP diastolic 70–98; PULSE 60–73; RESP 17–21; TEMP 36.1–36.9; O2SAT 97–98
--- NOTE | 2025-04-22 | DI.CT_ITS ---
Exam(s) CT CAROTID NECK CTA EXAM: CT CAROTID NECK CTA CLINICAL HISTORY: CVA on MRI, assess coratids. TECHNIQUE: Imaging Protocol: Axial CT angiography was performed with multi-slice acquisition and mu lti-planar and/or 3D reconstructions. CONTRAST MATERIAL: Intravenous: Omnipaque 350 Contrast volume:structured data in ml COMPARISON: No exams were available for comparison FINDINGS: CTA NECK W: AORTIC ARCH ANATOMY: The aortic arch is atherosclerotic and there is some atherosclerotic disease at the origin of the great vessels off the aortic arch with both noncalcified and calcified plaque at th jennifer levels. Anterior circulation: Both both common carotid arteries ascend with normal luminal diameters. There is both calcified and noncalcified plaque distally in these vessels as well as at the level the carotid bulbs and proximal internal carotid arteries where there is also both calcified and noncalcified plaque. There is appro ximately 50 percent stenosis of the right internal carotid artery at this level and approximately 25 percent stenosis of the left internal carotid artery at this level. Posterior circulation: Both vertebral arteries arise in conventional fashion off of the subclavian arteries without signific ant stenosis at the origin of the vertebral arteries. The left vertebral artery is dominant. At the skull base the basilar artery is formed by the left vertebral artery. The right vertebral artery te rminates as the right posterior inferior cerebellar artery at the skull base. OTHER: There is abnormal enlargement of the left thyroid lobe which contains nodules and should be fu rther studied with ultrasound. The opposite-right thyroid lobe appears unremarkable. There is no ob vious lymphadenopathy in left side of the neck. IMPRESSION: 1. There is significant calcified and noncalcified plaque at the carotid bulbs and internal carotid arteries in both sides the neck. 2. There is approximately 50 percent stenosis of the right ICA at this level and approximately 25 per cent stenosis of the left ICA at this level. 3. The left vertebral artery is dominant. The smaller right vertebral artery terminates at the [facility] base, forming the right posterior inferior cerebellar artery. The dominant left vertebral artery contributes to the formation of the basilar artery. Large heterogeneous nodular enlargement of the left thyroid lobe. Recommend follow-up ultrasound of the thyroid gland. [facility] preliminary report reviewed RADIATION DOSE DELIVERED: 371.13mGy.cm Total DLP DATA REPOSITORY: All CT scans at this facility are submitted to the National Radiology Data Registry (NRDR) Dose Index Registry (DIR) with the [employer] (A[employer]). RADIATION OPTIMIZATION: All CT scans at this facility use at least one of these dose optimization te chniques: automated exposure control; mA and/or kV adjustment per patient size (includes targeted exa ms where dose is matched to clinical indication); or iterative reconstruction.
--- NOTE | 2025-04-22 10:00 | DI.MRI_ITS ---
Exam(s) MR BRAIN WO EXAM: MR BRAIN WO CLINICAL HISTORY: slurred speech TECHNIQUE: Multiplanar multisequence MRI of the brain was performed. COMPARISON: No exams were available for comparison FINDINGS: CEREBRAL PARENCHYMA: There is no evidence of intracranial hemorrhage, mass effect, or shift of midline structures. There are no extra-axial fluid collections. Ventricles are not enlarged or shifted. There is a solitary small focus of restricted diffusion in the left side of the brain in the postcent ral gyrus region. This does not yet exhibit abnormal signal on T2 and FLAIR sequences. There is min imal if any significant periventricular signal abnormality. PITUITARY GLAND: No mass nor parasellar abnormality. No obvious abnormality in the cavernous sinuses. FLOW VOIDS: The expected flow void are noted. No evidence of obvious aneurysm nor obvious vascular ma lformation. Incidentally noted is a posterior communicating artery on both sides of the [id number] lis. PARANASAL SINUSES: The visualized paranasal sinuses appear unremarkable. No obvious finding ORBITS: No obvious findings. IMPRESSION: Abnormal study. There is a solitary small focus of restricted diffusion evident in the region of the left post central gyrus, consistent with acute ischemic event. This may be embolic given its appear ance. Report called by myself ER physician 04/22/2025 at 12:32 p.m. DATA REPOSITORY:
--- NOTE | 2025-04-22 10:15 | RT.EKG_ITS ---
APPROVED REPORT Exam: Resting ECG Reason for Exam: cva Patient Location: E HR:74 bpm ECG Measurements Heart Rate 74 AXIS IL 195 P 58 QRSd 157 QRS 9 QT 447 T 129 QTc 497 Conclusion Sinus rhythm...normal P axis, V-rate 60- 99 Left bundle branch block...QRSd>120, broad/notched R
--- NOTE | 2025-04-22 10:20 | W.ED.GENAD ---
Discharge Plan Disposition Patient Disposition: Admit to [facility] Condition: Serious Discharge Details Clinical Impression: Stroke Admit Date/Time: 04/22/25 13:00 Admit Provider: Reynaldo López Attending Provider: Reynaldo López Primary Care Provider: Asuncion Muñoz ED Provider: Fidencio Woody Discharge Data Discharge Date/Time-TO BE ENTERED AT DEPARTURE: 04/22/25 13:41 HPI General Mode of arrival: ambulatory. Date/Time Provider Initiated Documentation: 04/22/25 09:46. Information obtained by: patient. HPI Narrative: HISTORY OF PRESENT ILLNESS 83-year-old male presents with slurred speech, described as 'marbles in mouth,' first observed by his daughter at 0800 hours. Unsure last known normal yesterday. No associated numbness, weakness, pain, or vision changes. Compliant with Eliquis. Last week, experienced syncope, turned red, unresponsive with open eyes while sitting. History of atrial fibrillation, heart valve replacement a few years ago. Sent home on Eliquis after refusing admission and additional diagnostics. Related Data Home Medications ?Medication ?Instructions ?Recorded ?Confirmed glucosamine HCl 500 mg tablet 500 mg PO DAILY 07/29/23 04/22/25 losartan 25 mg tablet 25 mg PO DAILY 07/29/23 04/22/25 multivitamin 1 tab PO DAILY 07/29/23 04/22/25 amlodipine 5 mg tablet 5 mg PO DAILY 09/24/23 04/22/25 aspirin 81 mg tablet,delayed 81 mg PO DAILY 03/17/25 04/22/25 release (Adult Aspirin Regimen) apixaban 5 mg tablet (Eliquis) 5 mg PO BID Atrial Fibrillation 04/09/25 04/22/25 #30 tabs atorvastatin 40 mg tablet 40 mg PO DAILY #90 tabs 04/23/25 Previous Rx's ?Medication ?Instructions ?Recorded apixaban 5 mg tablet (Eliquis) 5 mg PO BID Atrial Fibrillation 04/09/25 #30 tabs atorvastatin 40 mg tablet 40 mg PO DAILY #90 tabs 04/23/25 Allergies Allergy/AdvReac Type Severity Reaction Status Date / Time lisinopril Allergy Mild Unknown Verified 04/09/25 10:38 NSAIDS (Non-Steroidal Allergy Unknown Verified 04/09/25 10:38 Anti-Inflamma penicillin V (Penicillin V) Allergy Unknown Verified 04/09/25 10:38 General Stated Complaint: GenMedical DANIKA: 3 Review of Systems All systems reviewed & are unremarkable except as noted in HPI and below Constitutional Constitutional: Denies fever(s) Exam Const General: cooperative and no acute distress [facility] Head: normocephalic and atraumatic Mouth: moist mucous membranes Eyes EOM: EOM intact bilaterally Neck Neck: trachea midline and supple Resp Auscultation: clear to auscultation bilaterally, no rales, no rhonchi and no wheezes Cardio Rate: regular rate and not tachycardic Rhythm: regular rhythm GI Palpation: soft, not firm, no guarding, no masses, not rigid and nontender Skin General skin exam: no rashes or lesions noted Neuro General: patient alert, patient awake, patient oriented x3 and tone normal Cranial Nerves: PERRL, accommodation normal, EOM intact bilaterally, no nystagmus, facial strength normal, tongue midline, hearing normal, able to rotate head bilaterally and able to elevate shoulders bilaterally Cognition: normal cognition Speech: abnormal speech (offperfamily) Motor: strength not 5/5 throughout Sensory Exam: no sensory deficits noted Extrem General: no edema Psych Appearance: grossly normal Mental Status: mental status grossly normal Course Vital Signs Vital signs: Vital Signs Temperature 36.5 C 04/22/25 09:48 Pulse 72 04/22/25 09:48 Respiratory Rate 20 04/22/25 09:48 Blood Pressure 181/77 H 04/22/25 09:48 Temperature 36.5 C 04/22/25 09:48 Pulse 72 04/22/25 09:48 Respiratory Rate 20 04/22/25 09:48 Blood Pressure 181/77 H 04/22/25 09:48 Oxygen Delivery Method Room Air 04/22/25 09:48 Oxygen Flow Rate 0 04/22/25 09:48 Medical Decision Making 1021 -- 84-year-old male with history of aortic valve replacement, recently diagnosed atrial fibrillation, now on Eliquis, here with slurred speech this morning. Last known normal last night. Patient is hypertensive 181/77. Patient saturating well in no respiratory distress. He has no other focal deficits. Concern for acute CVA. Given outside thrombolytic window and current MRI availability, I will obtain stat MRI to assess for CVA versus mass. I reviewed past medical record: Patient was seen here on 04/09/2025 for syncope. He had a CT of the chest which was interpreted by radiology as follows: 1. No evidence of a pulmonary embolism. 2. Ascending thoracic aorta measures 4.6 x 4.3 cm. Atherosclerotic calcification is present. 3. Three pulmonary nodules. The largest is in the left lung measuring 1.2 cm. This corresponds to the chest x-ray finding. Metastatic disease cannot be excluded. Consider 3 month follow-up, workup with combined PET and CT, tissue sampling or a combination there of. Any these may be appropriate depending on the size, morphology,: Orbit your other factors. 4. Heterogeneous left lobe of the thyroid gland. Nonemergent thyroid ultrasound is recommended for further evaluation. MRI brain interpreted by radiology: Abnormal study. There is a solitary small focus of restricted diffusion evident in the region of the left post central gyrus, consistent with acute ischemic event. This may be embolic given its appearance. Plan to hospitalize for CVA. I spoke with the hospitalist who will admit. Lab Data Lab results reviewed: Yes I reviewed the patient's lab results. 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
--- NOTE | 2025-04-22 10:26 | NUR.NOTE ---
Nursing Note:Assumed care of pt at 1023, advised MRI has opening at this time and takes priority. pt sent to MRI, pending line/labs when pt returns.
[2025-04-22 11:07] LABS: Abs Immature Grans 0.04 10^3/uL (0.0-0.06); Absolute Basophil Count 0.07 10^3/uL (0.0-0.2); Absolute Eosinophil Count 0.01 10^3/uL (0.0-0.7); Absolute Monocyte Count 0.58 10^3/uL (0.1-0.8); Absolute Neutrophil Count 7.32 10^3/uL (1.2-6.7); Basophils % 0.8 %; Eosinophils % 0.1 %; HCT 44.6 % (40.0-50.0); HGB 15.5 g/dL (13.5-17.5); Immature Grans % 0.5 %; Lymphocytes % 9.1 %; MCH 31.1 pg (27.0-33.0); MCHC 34.8 % (32.0-36.0); MCV 90 fL (80-95); MPV 9.7 fL (8.0-11.0); Monocytes % 6.6 %; Neutrophils % 82.9 %; Platelet Count 196 10^3/uL (130-400); RBC 4.98 10^6/uL (4.36-5.78); RDW 12.6 % (11.8-14.1); WBC 8.82 10^3/uL (4.4-10.8)
[2025-04-22 11:27] LABS: ALT 31 U/L (16-63); AST 24 U/L (15-37); Alkaline Phosphatase 81 U/L (46-116); Anion Gap 9.3 mmol/L (3-11); BUN 27 mg/dL (7-18); Bilirubin, Total 0.7 mg/dL (0.2-1.0); CO2 25.7 mmol/L (21.0-32.0); CREATININE 1.1 mg/dL (0.70-1.30); Calcium 9.7 mg/dL (8.5-10.1); Chloride 105 mmol/L (98-107); Estimated GFR 66.19 (mL/min/1.73m2); Glucose 150 mg/dL (74-106); Potassium 4.2 mmol/L (3.5-5.1); Sodium 140 mmol/L (136-145); Total Protein 7.2 g/dL (6.4-8.2); Troponin I 26 ng/L (<or=76)
--- NOTE | 2025-04-22 12:51 | HPE_ITS ---
Date of service: 04/22/25 Time of Service: 12:51 Assessment and Plan Assessment and plan (1) Stroke: Status: Chronic Assessment and plan: As per MRI as per HPI On Eliquis and statin No ASA since 04/09 Lipids A1C 6.2 on 04/09 telemetry Echocardiagram Teleneuro consult permissive HTN =- will hold home meds fro HTN and resume 24-48 hours (2) Incidental lung nodule: Status: Acute Assessment and plan: Outpatient f/u as per CT finding on 04/09 (3) Atrial fibrillation, new onset: Status: Acute Assessment and plan: On 04/09/25- ongoing Eliquis not on beta jesus (4) Hyperlipidemia: Status: Acute Assessment and plan: On statin (5) Prediabetes: Status: Acute Assessment and plan: heart healthy diet A1C 6.2 - outpatient f/u (6) Hypertension: Status: Chronic Assessment and plan: permissive HNT Discussed with Dr. López History of Present Illness History of Present Illness Chief Complaint: Slurred speech Narrative: 84-year-old male with history of aortic valve replacement, bladder mass in 2021, recently diagnosed atrial fibrillation, now on Eliquis, presented to the ED for evaluation of slurred speech this morning. Last known normal last night. Patient was hypertensive 181/77 w/o distress without other focal deficits. MRI showed solitary small focus of restricted diffusion evident in the region of the left post central gyrus, consistent with acute ischemic event. This may be embolic given its appearance a per report. No other significant finding in today's work-up. On 04/09 CT showed Ascending thoracic aorta measures 4.6 x 4.3 cm with calcification; and three pulmonary nodules not excluding metastatic disease with recommendation combined PET and CT, as well US thyroid. Full code status confirmed. 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 Meds Allergies and Home Medications Allergies Allergy/AdvReac Type Severity Reaction Status Date / Time lisinopril Allergy Mild Unknown Verified 04/09/25 10:38 NSAIDS (Non-Steroidal Allergy Unknown Verified 04/09/25 10:38 Anti-Inflamma penicillin V (Penicillin V) Allergy Unknown Verified 04/09/25 10:38 Home Medications ?Medication ?Instructions ?Recorded ?Confirmed ?Type glucosamine HCl 500 mg tablet 500 mg PO DAILY 07/29/23 04/22/25 History losartan 25 mg tablet 25 mg PO DAILY 07/29/23 04/22/25 History multivitamin 1 tab PO DAILY 07/29/23 04/22/25 History simvastatin 40 mg tablet 40 mg PO DAILY 07/29/23 04/22/25 History amlodipine 5 mg tablet 5 mg PO DAILY 09/24/23 04/22/25 History aspirin 81 mg tablet,delayed 81 mg PO DAILY 03/17/25 04/22/25 History release (Adult Aspirin Regimen) apixaban 5 mg tablet (Eliquis) 5 mg PO BID Atrial Fibrillation 04/09/25 04/22/25 Rx #30 tabs Exam Narrative Exam Narrative: No acute distress, no focal deficits, NIHS 0, cranial nerve II-XII intact, clear lungs, S1, S2 no murmur regular rate, abdomen is non-distended , soft, non- tender, no CVA tenderness, moves all 4 ext. Results Labs 04/22/25 10:54 04/22/25 10:54 Labs: Laboratory Results - last 24 hr 04/22/25 10:54 WBC 8.82 RBC 4.98 Hgb 15.5 Hct 44.6 MCV 90 MCH 31.1 MCHC 34.8 RDW 12.6 Plt Count 196 MPV 9.7 Immature Gran % 0.5 Neutrophils % 82.9 Lymphocytes % 9.1 Monocytes % 6.6 Eosinophils % 0.1 Basophils % 0.8 Nucleated RBC % 0.0 Absolute Neutrophils 7.32 H Absolute Lymphocytes 0.80 L Absolute Monocytes 0.58 Absolute Eosinophils 0.01 Absolute Basophils 0.07 Sodium 140 Potassium 4.2 Chloride 105 Carbon Dioxide 25.7 Anion Gap 9.3 BUN 27 H Creatinine 1.1 Est GFR (CKD-EPI 2020) 66.19 Glucose 150 H Calcium 9.7 Magnesium 2.0 Total Bilirubin 0.7 AST 24 ALT 31 Alkaline Phosphatase 81 Troponin I 26 Total Protein 7.2 Albumin 4.0 Last Vital Signs Temp 36.5 C 04/22/25 11:00 Pulse 60 04/22/25 12:48 Resp 21 04/22/25 11:00 BP 151/71 H 04/22/25 12:48 Pulse Ox 98 04/22/25 12:48 Time Spent Time spent with Patient: >75 minutes Time was spent: preparing to see the patient(eg.review tests), obtaining and/or reviewing separately otained hiistory, ordering medications,tests, procedures, referring, communicating with other health resident care manager, indepentently interpreting results, counseling the patient and care coordination
[2025-04-22 13:29] LABS: Calculated LDL 85 mg/dL (<100); Cholesterol 157 mg/dL (<200); HDL Cholesterol 56 mg/dL (>or=40); Triglyceride 84 mg/dL (<150)
--- NOTE | 2025-04-22 13:37 | W.PC.ACHO ---
Registration Status: Primary Language: Preferred Language: ED Information & Data Chief Complaint GenMedical 04/22/25 10:24 Triage Note Pt reportedly slurring 04/22/25 09:48 speech per family, w/ no other presentation. Pt states that he is unsure when this happened, last known well was the day before. Pt presents AAOx3 w/ o complaints and speech appears clear. Most Recent Vital Signs Temperature 36.5 C 04/22/25 11:00 Temperature Source Tympanic 04/22/25 11:00 Pulse 60 04/22/25 12:48 Pulse Rhythm Regular 04/22/25 11:00 Pulse Strength Normal 04/22/25 11:00 Respiratory Rate 21 04/22/25 11:00 Respiratory Effort Normal 04/22/25 11:00 Respiratory Depth Normal 04/22/25 11:00 Respiratory Pattern Normal 04/22/25 11:00 Blood Pressure 151/71 H 04/22/25 12:48 Blood Pressure Mean 97 04/22/25 12:48 Blood Pressure Position Sitting 04/22/25 11:00 Pulse Oximetry 98 04/22/25 12:48 Oxygen Delivery Method Room Air 04/22/25 11:00 Oxygen Flow Rate 0 04/22/25 11:00 Allergies lisinopril Allergy (Mild, Verified 04/09/25 10:38) Unknown NSAIDS (Non-Steroidal Anti-Inflamma Allergy (Verified 04/09/25 10:38) Unknown penicillin V (Penicillin V) Allergy (Verified 04/09/25 10:38) Unknown IV IV Catheter Type [Right Peripheral IV Antecubital] IV Catheter Gauge [Right 20 Antecubital] Diagnostics 04/22/25 Range/Units 10:54 WBC 8.82 (4.4-10.8) 10^3/uL RBC 4.98 (4.36-5.78) 10^6/uL Hgb 15.5 (13.5-17.5) g/dL Hct 44.6 (40.0-50.0) % MCV 90 (80-95) fL MCH 31.1 (27.0-33.0) pg MCHC 34.8 (32.0-36.0) % RDW 12.6 (11.8-14.1) % Plt Count 196 (130-400) 10^3/uL MPV 9.7 (8.0-11.0) fL Immature Gran % 0.5 % Neutrophils % 82.9 % Lymphocytes % 9.1 % Monocytes % 6.6 % Eosinophils % 0.1 % Basophils % 0.8 % Nucleated RBC % 0.0 (0.0-0.3) % Absolute Neutrophils 7.32 H (1.2-6.7) 10^3/uL Absolute Lymphocytes 0.80 L (1.2-3.4) 10^3/uL Absolute Monocytes 0.58 (0.1-0.8) 10^3/uL Absolute Eosinophils 0.01 (0.0-0.7) 10^3/uL Absolute Basophils 0.07 (0.0-0.2) 10^3/uL Sodium 140 (136-145) mmol/L Potassium 4.2 (3.5-5.1) mmol/L Chloride 105 (98-107) mmol/L Carbon Dioxide 25.7 (21.0-32.0) mmol/L Anion Gap 9.3 (3-11) mmol/L BUN 27 H (7-18) mg/dL Creatinine 1.1 (0.70-1.30) mg/dL Est GFR (CKD-EPI 2020) 66.19 (mL/min/1.73m2) Glucose 150 H (74-106) mg/dL Calcium 9.7 (8.5-10.1) mg/dL Magnesium 2.0 (1.8-2.4) mg/dL Total Bilirubin 0.7 (0.2-1.0) mg/dL AST 24 (15-37) U/L ALT 31 (16-63) U/L Alkaline Phosphatase 81 (46-116) U/L Troponin I 26 (<or=76) ng/L Total Protein 7.2 (6.4-8.2) g/dL Albumin 4.0 (3.4-5.0) g/dL Triglycerides 84 (<150) mg/dL Total Cholesterol 157 (<200) mg/dL LDL Cholesterol, Calc 85 (<100) mg/dL HDL Cholesterol 56 H (>or=40) mg/dL [id number] Documentation Fingerstick Glucose Start: 04/22/25 10:16 Freq: .Stat Status: Active Protocol: Activity Type Activity Date Activity User E-sign Co-sign Detail Recorded Client Recorded Date Recorded By Document 04/22/25 11:04 BKG DAEMON(3) [id number] 04/22/25 11:06 BKG DAEMON(4) Intake and Output - 24 Hour Total 04/22/25 09:30 thru 04/22/25 09:48 Weight 88.451 kg Falls Risk Assessment History of Falls No History 04/22/25 10:24 Contributing Factors No Factors 04/22/25 10:24 Ambulatory Aids Independent 04/22/25 10:24 Tubes/Lines None 04/22/25 10:24 Gait Evaluation No gait disturbance 04/22/25 10:24 Cognition No cognitive impairment 04/22/25 10:24 Fall Total Score 0 04/22/25 10:24 Level of Risk Standard/Low Risk 04/22/25 10:24 Problems (Last Reviewed 04/09/25 @ 12:23 by Cecilia Hubbard NP) Stroke (Chronic) Incidental lung nodule (Acute) Atrial fibrillation, new onset (Acute) Hyperlipidemia (Acute) Prediabetes (Acute) Hypertension (Chronic) Notes 04/22/25 10:26 Nursing Notes by Jaenll Jiménez Nursing Note:Assumed care of pt at 1023, advised MRI has opening at this time and takes priority. pt sent to MRI, pending line/labs when pt returns. Initialized on 04/22/25 10:26 - END OF NOTE v v v v v v v v v Sending and/or Receiving Nurses: Please use comment section below to note any information pertinent to the patient hand-off not included above. Information / Comments: Report received from:lisa
--- NOTE | 2025-04-22 14:30 | DI.US_ITS ---
APPROVED REPORT EXAM: Comprehensive 2D, Doppler, and color-flow Echocardiogram Patient Location: Out-Patient [facility] Specialist: Jamel Sanchez RDCS (AE) Indications: Stroke Other Information Study Quality: Adequate. Technically limited study due to poor subcostal windows. Conclusion Normal left ventricular wall thickness and chamber size. Ejection fraction is 60%. Wall motion is n ormal Normal right ventricular size and function Both atria are normal in size. The atrial septum is thin and hypermobile There is a prior transcatheter aortic valve replacement. There is no aortic stenosis or regurgitatio n Mild mitral annular calcification, mild mitral regurgitation Estimated right ventricular systolic pressure is 40 mmHg Wall motion Left Ventricle The left ventricle is normal size. The left ventricular systolic function is normal. The left ventric ular ejection fraction is within the normal range. There is normal left ventricular wall thickness. T here is normal LV segmental wall motion. There is no ventricular septal defect visualized. LVEF is 60 %. Right Ventricle The right ventricle is normal size. The right ventricular systolic function is normal. Atria The left atrium size is normal. The right atrium size is normal. Atrial septum is thin and hypermobil e Aortic Valve Patient has TAVR. There is no aortic valvular stenosis. No aortic regurgitation is present. Mitral Valve Mild mitral annular calcification. No evidence of mitral valve stenosis. Mild mitral regurgitation. Tricuspid Valve The tricuspid valve is normal in structure. There is no tricuspid valve stenosis. Trace tricuspid reg urgitation. The RVSP is 40 mmHg. Pulmonic Valve Pulmonic valve is not well visualized. Great Vessels The aortic root is normal in size. Ascending aorta is not well visualized. Aortic arch is normal in c aliber. IVC is normal in size and collapses >50% with inspiration. Pericardium There is no pericardial effusion. 2D Dimensions IVSD d PLAX 0.88 cm M: 0.6-1.2 Ao Root d 2.82 cm M: 3.1 - 3.7 LVPW d PLAX 0.95 cm M: 0.6 - 1.2 LVID d PLAX 4.95 cm M: 4.2 - 5.8 LVDs 3.37 cm M: 2.5 - 4.0 LV EF Teichholz 59.7 % FS 31.86 % LV EDV (Teich) 115.4 mL LV ESV (Teich) 46.5 mL Stroke Vol Index (Teich) 32.96 M-Mode TAPSE 2.40 cm (M/F) >1.7 Auto EF LV EDV A4C 128.8 mL LV EDV A2C 140.5 mL LV EDV BP 134.8 mL LV ESV A4C 54.8 mL LV ESV A2C 57.0 mL LV ESV BP 56.4 mL LVEF(%) A4C 57.5 % LVEF(%) A2C 59.4 % LVEF(%) BP 58.2 % LV SV A4C 74.0 ml LV SV A2C 83.5 ml LV SV BP 78.4 ml LV CO A4C 4.9 L/min LV CO A2C 5.3 L/min LV CO BP 5.1 L/min HR A4C 65.70 BPM HR A2C 63.83 BPM LV EDV Index (BP) LA Volume LA Length A4C 4.0 cm LA Length A2C 4.2 cm LA Area A4C s 10.86 cm2 LA Area A2C s 12.18 cm2 LA Vol A4C A-L 24.84 mL LA Vol A2C A-L 30.16 mL LA Vol Biplane A-L 27.9 mL LA Vol/BSA A4C A-L LA Vol/BSA A2C A-L LA Vol/BSA BP A-L 13.3 mL/m2 LA Vol A4C MOD 24.6 mL LA Vol A2C MOD 28.7 mL LA Vol BP MOD 26.5 mL RA Volume RA Area A4C 14.0 cm2 RA ESV A4C (A-L) 29.6mL RA Vol/BSA A4C A-L RA Length A4C 5.6 cm RA ESV A4C (MOD) 27.7mL LV Diastology MV E' medial 0.095 (>0.07 m/s) MV E Vmax 0.32 (0.4-1.3 m/s) MV E/E' MED 3.38 (<14) MV A Vmax 0.95 (0.4-1.3 m/s) MV E' lateral 0.085 (>0.1 m/s) E/A Ratio 0.3 MV E/E' LAT 3.79 (<14) MV E' Average 0.090 m/s MV E/E'(average) 3.58 Aortic Valve AoV Vmax 1.67 m/s LVOT Vmax 0.93 m/s AoV Peak Grad 11.2 mmHg LVOT Peak Grad 3.5 mmHg AoV Area (Vmax) 2.11 cm2 LVOT VTI 0.202 m AoV VTI 0.317 m LVOT Mean Grad 1.5 mmHg AoV Mean Steve. 1.12 m/s LVOT SV 76.69 mL AoV Mean Grad 5.8 mmHg LVOT Diam s 2.15 cm AoV Area (VTI) 2.42 cm2 AV Regurg Peak Gr. 11.22 mmHg Velocity Ratio 0.56 Tricuspid Valve RA Pressure 3.00 mmHg TR Vmax 3.03 m/s TR Peak Grad 36.7 mmHg RVSP (TR) 39.8 mmHg
--- NOTE | 2025-04-22 15:43 | PHA.REVIEW2 ---
Pharmacy Admission Review Admission Clinical Review Admission Pharmacy Review: Incidental lung nodule (Acute) Atrial fibrillation, new onset (Acute) Hyperlipidemia (Acute) Prediabetes (Acute) lisinopril Allergy (Mild, Verified 04/09/25 10:38) Unknown NSAIDS (Non-Steroidal Anti-Inflamma Allergy (Verified 04/09/25 10:38) Unknown penicillin V (Penicillin V) Allergy (Verified 04/09/25 10:38) Unknown Resuscitation Status Full Code Height 5 ft 11 in Weight 88.451 kg Pharmacy Admission Review Renal Dosing Renal Dosing: BUN 27 mg/dL (7-18) H 04/22/25 10:54 Creatinine 1.1 mg/dL (0.70-1.30) 04/22/25 10:54 Medications needing adjustments: Reviewed (CrCl 62.54 mL/min) List of meds needing interventions: Current medications are okay Anticoagulation Anticoagulation: Hgb 15.5 g/dL (13.5-17.5) 04/22/25 10:54 Hct 44.6 % (40.0-50.0) 04/22/25 10:54 Plt Count 196 10^3/uL (130-400) 04/22/25 10:54 Creatinine 1.1 mg/dL (0.70-1.30) 04/22/25 10:54 DVT Prophylaxis: Reviewed Medications: Apixaban (5mg PO BID for Afib) Relevant Labs Relevant Labs: Sodium 140 mmol/L (136-145) 04/22/25 10:54 Potassium 4.2 mmol/L (3.5-5.1) 04/22/25 10:54 Chloride 105 mmol/L (98-107) 04/22/25 10:54 Magnesium 2.0 mg/dL (1.8-2.4) 04/22/25 10:54 Electrolytes, C-Reactive P, ESR: Reviewed Cardiac Review Cardiac Review: Troponin I 26 ng/L (<or=76) 04/22/25 10:54 Blood Pressure 187/80 1349 Blood Pressure 181/77 1024 Blood Pressure 181/77 0948 BP, HR, EF%: Reviewed (HR WNL) List meds needing interventions: Takes amlodipine and losartan at home - most likely on hold for permissive hypertension due to stroke QTc Review QTc: Reviewed (497 04/22/25) IV to PO Switch IV Medications: Reviewed Home Meds Home Med List reviewed: Reviewed Relevent Home Meds Not ordered & why?: amlodipine and losartan Most likely on hold to allow for permissive hypertension in setting of stroke Current Meds Current Medication Order Review: Intervened Comments: Changed IV ED access
[2025-04-22] MEDS: Docusate Sodium 100 MG CAP PO (20:45)
[2025-04-22] MEDS: Normal Saline Flush 10 ML SYR IVP (20:45)
[2025-04-22] MEDS: Apixaban 5 MG TAB PO (20:45)
[2025-04-22] MEDS: Aspirin 325 MG TAB PO (21:21)
[2025-04-22] MEDS: Omnipaque 350 MG/ML 100 ML BTL 70 ML IJ (21:32)
[2025-04-22] MEDS: Normal Saline - Diluent 50 ML VIAL IJ (21:33)
--- NOTE | 2025-04-22 21:57 | DI.VRAD_ITS ---
PROCEDURE INFORMATION: Exam: CTA Neck With Contrast Exam date and time: 04/22/2025 9:28 PM Age: 84 years old Clinical indication: Abnormal findings; Abnormal mri of head; CVA on mri, assess carotids TECHNIQUE: Imaging protocol: Computed tomographic angiography of the neck with contrast. Exam focused on the cervical segments of the vasculature. 3D rendering (Not supervised by radiologist): MIP and/or 3D reconstructed images were created by the technologist. Radiation optimization: All CT scans at this facility use at least one of these dose optimization techniques: automated exposure control; mA and/or kV adjustment per patient size (includes targeted exams where dose is matched to clinical indication); or iterative reconstruction. Contrast material: [id number]; Contrast volume: 70 ml; Contrast route: INTRAVENOUS (IV); COMPARISON: CT CHEST PE CTA 04/09/2025 12:04 PM FINDINGS: Right common carotid artery: No stenosis. No dissection or occlusion. Right internal carotid artery: Approximately 50% stenosis of right internal carotid artery with calcified plaque. Right external carotid artery: No occlusion or stenosis of the origin. Left common carotid artery: No stenosis. No dissection or occlusion. Left internal carotid artery: Approximately 25% stenosis of left internal carotid artery with calcified plaque. Left external carotid artery: No occlusion or stenosis of the origin. Right vertebral artery: No stenosis. No dissection or occlusion. Left vertebral artery: No stenosis. No dissection or occlusion. Aorta: Atherosclerotic calcification of the aortic arch. Thyroid: Heterogenous nodule in the left thyroid lobe measuring 5.1 cm. Soft tissues: Normal. No significant soft tissue swelling. Bones/joints: There is multilevel uncovertebral and facet hypertrophy with neural foramina narrowing. IMPRESSION: 1. Right: Approximately 50% stenosis of right internal carotid artery with calcified plaque. Vertebral artery is patent. 2. Left: Approximately 25% stenosis of left internal carotid artery with calcified plaque. Vertebral artery is patent. 3. Heterogenous nodule in the left thyroid lobe measuring 5.1 cm. Nonemergent ultrasound can be obtained for further assessment. REFERENCES: NASCET CRITERIA. The degree of stenosis in the cervical segment of the internal carotid artery is based on NASCET criteria. Normal is no stenosis. Mild is less than 50% stenosis. Moderate is 50-69% stenosis. Severe is 70% to 99% stenosis. Total occlusion is no detectable patent lumen. Dictated and Authenticated by: Levi Seth MD. Orderin Maribel Jacobs MD
[2025-04-23 07:30] VITALS: BP 161/69; PULSE 57; RESP 16; TEMP 36.5; O2SAT 97
--- NOTE | 2025-04-23 08:50 | INITIAL_ITS ---
Care Management Initial [facility] Advance Directives Advance Directives: Do you have an Advance Directive: Y 06/16/15 09:55 AD On File at [facility]: N 06/16/15 09:55 Date Asked 04/22/25 04/22/25 10:15 AD Date Reviewed COLST On File at [facility] COLST Date Scanned Code Status Resuscitation Status Full Code Care Team Visit Care Team Role Provider Type Sima Carrillo, ERNESTINE NURSE PRACTITIONER Asuncion Muñoz MD Primary Care Provider [facility] STAFF PHYSICIAN Do Matta, SLIPPER MAKER Other Providers SPEECH LANGUAGE PATHOLOGIST Eleni Rojas, SLIPPER MAKER Other Providers SPEECH LANGUAGE PATHOLOGIST Tiana Marsh Other Providers SPEECH LANGUAGE PATHOLOGIST Cornelia Felder, SLIPPER MAKER Other Providers SPEECH LANGUAGE PATHOLOGIST Lucero Whittington, SLIPPER MAKER Other Providers SPEECH LANGUAGE PATHOLOGIST Ivis Malcolm Other Providers OTHER Fidencio Woody MD Emergency Provider [facility] STAFF PHYSICIAN Reynaldo López Admit Provider [facility] STAFF PHYSICIAN Attending Provider Social Determinants of Health Screening Social Determinants of health last assessed in clinic: 04/22/25 Will the Patient Participate in the Screening?: Yes Do you worry about having a steady place to live?: no Problems where you live: no known problems In the past 12 months, have you had to go without electric, gas, oil or water in your home?: no Has lack of transportation kept you from medical appointments or from doing things needed for daily living?: no Has anyone in your life made you feel unsafe or unsupported?: no How hard is it for you to pay for the very basics like food, housing, medical care, and heating? Would you say it is:: Not hard at all Do you want help finding or keeping work or a job?: I do not need or want help If for any reason you need help with day-to-day activities such as bathing, preparing meals, shopping, managing finances, etc., do you get the help you need?: I don?t need any help How often do you feel lonely or isolated from those around you?: Never Do you speak a language other than Serbian at home?: No PFSH All Active Problems (Updated 04/22/25 @ 13:05 by Molly Ramirez APRN) Stroke (Chronic) Enlarged thyroid gland (Acute) Incidental lung nodule (Acute) Episode of syncope (Chronic) Atrial fibrillation, new onset (Acute) Diverticula, bladder (Acute) Allergic rhinitis (Acute) 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
[2025-04-23] MEDS: Apixaban 5 MG TAB PO (09:04)
[2025-04-23] MEDS: Multivitamin TAB 1 TAB PO (09:07)
[2025-04-23] MEDS: Aspirin 81 MG CHEW PO (09:07)
[2025-04-23] MEDS: Glucosamine 500 MG CAP PO (09:07)
[2025-04-23] MEDS: Simvastatin 40 MG TAB PO (09:08)
[2025-04-23] MEDS: Normal Saline Flush 10 ML SYR IVP (09:09)
--- NOTE | 2025-04-23 10:33 | IN_ITS ---
PT Notes Visit Reasons: Stroke Physical Therapy Inpatient Initial Evaluation Date: 04/23/2025 Referring Doctor: Molly Ramirez APRN PT Orders: PT CONSULT: Safety consult for discharge Precautions: Standard Patient Profile/Admitting Diagnosis: Patient is 84-year-old male with history of aortic valve replacement, bladder mass in 2021, recently diagnosed atrial fibrillation, now on Eliquis, presented to the ED for evaluation of slurred speech on 04/22/2025. Last known normal on evening of 04/21/2025. In ED, patient was hypertensive 181/77 w/o distress without other focal deficits. MRI showed solitary small focus of restricted diffusion evident in the region of the left post central gyrus, consistent with acute ischemic event. Patient admitted to MedSurg unit for monitoring and management status post CVA. 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 Patient independent with ambulation, IADLs, home management driving. Equipment Owned/DME: None Subjective: Patient states he wants to go home today he is feeling better and would like to see a doctor. Patient reports he is attending outpatient PT for new onset left sciatica. Patient reports he was at PT session on 04/22/2025 prior to presentation to ED. Patient reports no current sciatic symptoms at this time. Patient reports he was given a home exercise program. Objective: [] General Observation: Patient presented supine in bed with visiting Mental Status: Alert and oriented x 4, able to follow instructions, cooperative. Patient agreeable to participate in evaluation Pain: Denies ROM: [] BUE: WFL BLE: WFL except hip extension to neutral Strength: [] BUE: 5/5 grossly Right Lower Extremity: Grossly 4/5 Left Lower Extremity: Grossly 4/5 Sensation: Intact Bed Mobility/Transfers: [] Supine to sit independent Sit to stand independent Stand to sit independent Bed to chair independent Gait: Ambulated 300 feet without assistive device reciprocal pattern including turns no loss of balance supervision/independent Stairs: 3 4 steps? and 2 6 steps with rails supervision reciprocal pattern Balance: [] Static Sitting: Normal Dynamic Sitting: Normal Static Standing: Normal Dynamic Standing: Good 4 STAGE BALANCE TEST: Feet together ___30_ seconds 1/2 Stance ____15___ seconds Tandem stance __9__seconds Single leg stance left__10__seconds, right___8_seconds Special Tests: [] Mobility Limitations Standardized Measure [] [facility] AM-PAC 6 clicks Basic Mobility Inpatient Short Form: [] Raw Score: 24 CMS Score: 0% Informed Consent/Education: Patient instructed in purpose of PT consult. Assessment: Sajan is an 84-year-old male presenting currently with no deficits in strength motor planning, motor coordination. Patient able to ambulate 300 feet without device without loss of balance and perform stairs safely. Patient appears at functional baseline at this time no further skilled PT indicated as an inpatient. When medically appropriate patient discharged to home with resumption of outpatient PT services for ongoing left sciatica. Patient denied symptoms of left sciatica throughout assessment except with tandem stance with left lower extremity back. Patient able to perform home exercise program issued by outpatient therapist independently. Patient is assessed as a low complexity based on the following: History: 84-year-old male with past medical history as indicated above Examination: Status as documented above Presentation: Stable Decision Making: Low Goals: N/A Plan of Care/Treatment Plan: N/A DISCHARGE RECOMMENDATIONS: Home with return to outpatient PT for left-sided sciatica management TREATMENT CODE/TIME: [id number] Thank you for the opportunity to participate in the care of this patient. [facility]
--- NOTE | 2025-04-23 11:09 | DSE_ITS ---
Date of service: 04/23/25 Time of Service: 11:09 DS: Diagnosis Discharge Diagnosis (1) Stroke: Status: Chronic (2) Incidental lung nodule: Status: Acute (3) Atrial fibrillation, new onset: Status: Acute (4) Hyperlipidemia: Status: Acute (5) Prediabetes: Status: Acute (6) Hypertension: Status: Chronic Discharge Plan Disposition Patient Disposition: Home Condition: Stable Discharge Details Reason For Visit: Stroke Admit Date/Time: 04/22/25 13:00 Admit Provider: Reynaldo López Attending Provider: Reynaldo López [facility] Course: This is an 84-year-old male with history of aortic valve replacement, bladder mass in 2021, recently diagnosed atrial fibrillation, now on Eliquis, presented to the ED for evaluation of slurred speech. MRI showed solitary small focus of restricted diffusion evident in the region of the left post central gyrus, consistent with acute ischemic event. Teleneuro consult with recommendations to continue apixaban and adding back baby aspirin which was stopped when he started the Eliquis. They recommended atorvastatin in place of simvastatin. His symptoms completely resolved and he was at baseline. On admission blood pressure medications held to allow for permissive hypertension these can be resumed at discharge. Discharge plan was discussed with his director card team at [facility] they are in agreement with continue apixaban at the 5 mg twice daily dose as currently taking. He will continue with outpatient physical therapy. He also would like to be referred to neurology here at [facility] so referral placed for Dr Rica Katz. He is being discharged home with his . discharge discussed with DR Rodriguez OF note: On 04/09 CT showed Ascending thoracic aorta measures 4.6 x 4.3 cm with calcification; and three pulmonary nodules not excluding metastatic disease with recommendation combined PET and CT, as well US thyroid. these have been arranged outpatient. Home Meds and New Rx's Prescriptions: New atorvastatin 40 mg tablet 40 mg PO DAILY Qty: 90 0RF Continued amlodipine 5 mg tablet 5 mg PO DAILY aspirin [Adult Aspirin Regimen] 81 mg tablet,delayed release (DR/EC) 81 mg PO DAILY losartan 25 mg tablet 25 mg PO DAILY multivitamin Tablet 1 tab PO DAILY glucosamine HCl 500 mg tablet 500 mg PO DAILY Rx Instructions: administer with a meal Eliquis 5 mg tablet 5 mg PO BID Qty: 30 3RF Rx Instructions: Take 1 tablet by mouth twice daily Discontinued simvastatin 40 mg tablet 40 mg PO DAILY Discharge Instructions Instructions: Stroke - Discharge instructions Additional Instructions: take all medications as prescribed wear cardiac event as directed You have an appointment on April 28 at 8 AM here at [facility] for a thyroid ultrasound please present to radiology for this appointment Stand Alone Forms: Nursing Discharge Form Referrals: [facility] [Provider Group] - 05/04/25 7:00 am (Keep scheduled appointment at Department of Nuclear Medicine at [facility] for nuclear medicine PET scan. Arrive at 3V radiation safety officer area) [facility] [Provider Group] (continue outpatient physical therapy) [facility]] - (Cardiology will call you for follow up appointment. Call by the end of the week if you do not hear from them: [phone]) Asuncion Muñoz MD [Primary Care Provider] - (Please call the office to make a hospital follow up within 7-10 days ) Rica Katz MD [[facility] STAFF PHYSICIAN] - (A referral has been sent to the office) Activity:: Activity as Tolerated Equipment/Supplies:: No Equipment Needed Diet:: As Tolerated Discharge Orders Discharge Orders: Discharge Order (Routine); Ordered 04/23/25 Ordered By: Sima Carrillo Other Ambulatory Orders: Cardiac Event Recorder (Routine) Timeframe: 20250423 Facility: [facility] - Location: Respiratory Therapy Ordered By: Sima Carrillo Discharge Data Discharge Date/Time-TO BE ENTERED AT DEPARTURE: 04/23/25 14:07 DS: Summary Time Spent with Patient providing and/or coordinating discharge services: Greater than 30 minutes Status at Discharge Functional status at discharge: independent ambulation Overall status at discharge: patient is back to baseline Mental Status: mental status grossly normal Speech and Movement: speech and movement normal Mood: congruent mood Affect: normal affect Quality:SDOH Health Related Social Needs: No Data to Display Exam Narrative Exam Narrative: Elderly male of stated age no acute distress head is atraumatic eyes nonicteric noninjected oral mucosas moist neck is supple full range of motion cardiovascular regular rate and rhythm sinus rhythm on the monitor respirations even and unlabored abdomen benign moves all extremities equally no peripheral edema neurologic he is awake alert oriented with no focal deficits psychiatric appropriate mood and affect Psych Mental Status: mental status grossly normal Speech and Movement: speech and movement normal Mood: congruent mood Affect: normal affect DS: Data Vitals/I&O Vitals and I&O: Vital Signs Temperature 36.5 C 04/23/25 07:30 Temperature Source Temporal Artery Scan 04/23/25 07:30 Pulse 57 L 04/23/25 07:30 Pulse Rhythm Regular 04/22/25 13:54 Pulse Strength Normal 04/22/25 11:00 Respiratory Rate 16 04/23/25 07:30 Respiratory Effort Normal 04/22/25 13:54 Respiratory Depth Normal 04/22/25 13:54 Respiratory Pattern Normal 04/22/25 13:54 Blood Pressure 161/69 H 04/23/25 07:30 Blood Pressure Mean 99 04/23/25 07:30 Blood Pressure Position Sitting 04/22/25 11:00 Pulse Oximetry 97 04/23/25 07:30 Oxygen Delivery Method Room Air 04/23/25 07:30 Oxygen Flow Rate 0 04/23/25 07:30 Pain Level 0 04/23/25 07:30 Comment Pt Refused, nurse notified. 04/23/25 04:41 Intake & Output 04/22/25 04/22/25 04/23/25 11:59 23:59 11:59 Intake Total 240 / 240 Balance 240 / 240 Weight 88.451 kg 88.451 kg Intake: Oral 240 / 240 Other: Urine Appearance Clear Comment pt voided in toilet, no complants Data Completed and Pending Labs on day of discharge: Labs from last 24 hours 04/22/25 10:54 Sodium 140 Potassium 4.2 Chloride 105 Carbon Dioxide 25.7 Anion Gap 9.3 BUN 27 H Creatinine 1.1 Est GFR (CKD-EPI 2020) 66.19 Glucose 150 H Calcium 9.7 Magnesium 2.0 Total Bilirubin 0.7 AST 24 ALT 31 Alkaline Phosphatase 81 Troponin I 26 Total Protein 7.2 Albumin 4.0 Triglycerides 84 Total Cholesterol 157 LDL Cholesterol, Calc 85 HDL Cholesterol 56 H PFSH All Active Problems (Updated 04/22/25 @ 13:05 by Molly Ramirez APRN) Stroke (Chronic) Enlarged thyroid gland (Acute) Incidental lung nodule (Acute) Episode of syncope (Chronic) Atrial fibrillation, new onset (Acute) Diverticula, bladder (Acute) Allergic rhinitis (Acute) 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 Time Spent with Patient Time Spent with Patient: 45-69 minutes Time was spent: preparing to see the patient(eg.review tests), obtaining and/or reviewing separately otained hiistory, ordering medications,tests, procedures, referring, communicating with other health neurocritical care physician, indepentently interpreting results and counseling the patient
--- NOTE | 2025-04-23 11:33 | PDOC.CMDIS ---
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 Visits: 2 Answers: Total Score: 11 Risk of Readmission: High Risk Care Management Discharge Plan Reason for Hospitalization: Stroke Discharge Plan: Sajan will be discharged home today with a resumption of outpatient PT. He will follow up with his community providers and discharge plan of care. Sajan will transport via private vehicle by his . Patient/Family Education Needs: Review discharge instructions, activity, limitations and plan of care as directed. Discuss Ask Me Three Services Needed at Discharge: Outpatient Therapy SDOH Health Related Social Needs: No Data to Display
[2025-04-23 13:48] VITALS: BP 151/62; PULSE 74; RESP 16; TEMP 36.4; O2SAT 97
--- NOTE | 2025-04-23 21:22 | NUR.NOTE ---
entered chart to locate missing tele, reviewd dc info only:
== END 2025-04-23 14:07 | disposition home or self-care (01) ==
LOC: ER 10:16 → MS 13:54
PROVIDERS: Nurse Practitioner Acute Care; Admitting Provider Family Medicine; Emergency Provider Student in an Organized Health Care Education/Training Program; PCP Family Medicine; Responsible Provider Nurse Practitioner Acute Care; Visit Provider Family Medicine
DX: I63.9 Cerebral infarction, unspecified (principal); I48.91 Unspecified atrial fibrillation; R91.1 Solitary pulmonary nodule; E78.5 Hyperlipidemia, unspecified; I10 Essential (primary) hypertension; R73.03 Prediabetes; R47.81 Slurred speech; E04.2 Nontoxic multinodular goiter; Z95.4 Presence of other heart-valve replacement; I70.0 Atherosclerosis of aorta; N32.3 Diverticulum of bladder; Z79.899 Other long term (current) drug therapy; Z79.01 Long term (current) use of anticoagulants
CPT/HCPCS: 00123; 36415; 36416; 70498; 80053; 80061; 82962; 93005; 93270; 93306; 97161; 99285; 70551; 83735; 84484; 85025; 93010; 99223; 99239; G0378; J3490

== ENCOUNTER 2025-04-23 14:24 | Outpatient (RCR) | payer MEDICARE, OTHER, SELFPAY | END 2025-04-23 23:59 | disposition home or self-care (01) | LOC: RT 14:24 | PROVIDERS: PCP Family Medicine; Visit Provider Nurse Practitioner Acute Care | DX: I63.9 Cerebral infarction, unspecified (principal) | CPT/HCPCS: 93270 ==

== ENCOUNTER 2025-04-28 02:32 | Outpatient (CLI) | payer MEDICARE, OTHER, SELFPAY ==
--- NOTE | 2025-04-28 | DI.US_ITS ---
Exam(s) US THYROID EXAM: US THYROID CLINICAL HISTORY: R93.89 ABN findings on DI of other specified body structures,. TECHNIQUE: Ultrasound thyroid performed using standard protocol. COMPARISON: CT CT CAROTID NECK CTA from 04/22/2025 FINDINGS: ISTHMUS: 8.6 mm RIGHT LOBE: Size: 5.2 x 2.1 x 1.9 cm Echogenicity: Normal. Vascularity: Normal. Nodules: No suspicious nodules are seen in the right lobe. LEFT LOBE: Size: 6.8 x 3.9 x 3.2 cm Echogenicity: Normal. Vascularity: Normal. Nodules: There are 2 nodules seen in the left lobe. The larger and more superior nodule measures 5.1 x 2.8 x 3.9 cm. It has solid components and is isoechoic. Punctate echogenic foci are seen. The f indings are consistent with a TI rads level 4 nodule. Due to its size, FNA is recommended. The more inferior nodule measures 4.3 x 1.8 x 2.0 cm. It is predominantly solid and isoechoic. There are pu nctate echogenic foci seen. It is consistent with a TI rads level 4 nodule. Due to its size, FNA is recommended. OTHER FINDINGS: None. IMPRESSION: Complex nodule seen in the left lobe. Due to their size, FNA is recommended. DATA REPOSITORY:
== END 2025-04-28 02:52 ==
LOC: DI 02:33
PROVIDERS: PCP Family Medicine; Visit Provider Family Medicine
DX: E04.1 Nontoxic single thyroid nodule (principal)
CPT/HCPCS: 76536

== ENCOUNTER → 2025-06-17 09:36 | Outpatient (BNVA) | payer MEDICARE, OTHER, SELFPAY | PROVIDERS: PCP Family Medicine; Referring Provider Family Medicine; Visit Provider Urology | DX: N40.1 Benign prostatic hyperplasia with lower urinary tract symptoms (principal); R39.89 Other symptoms and signs involving the genitourinary system | CPT/HCPCS: 99214 ==

== ENCOUNTER 2025-06-21 03:15 | Outpatient (CLI) | payer MEDICARE, OTHER, SELFPAY ==
--- NOTE | 2025-06-21 07:45 | DI.US_ITS ---
Exam(s) US NEEDLE LOCAL OTHER WO RAD EXAM: US NEEDLE LOCAL OTHER WO RAD CLINICAL HISTORY: Left thyroid nodule x 2, multinodular thyroid, E04.2 nontoxic. COMPARISON: No exams were available for comparison TECHNIQUE: Ultrasound was provided for Dr. Garduno for guidance with performing left thyroid nodule FNA. FINDINGS: Please see procedure note for details. DATA REPOSITORY:
--- NOTE | 2025-06-21 11:30 | PAPNONF_PTH ---
PATIENT: Sajan Kay LOC: [facility] U#:[id number] AGE/SX: 84/M ROOM: RE06/21/[address]: Antoine Garduno MD : [id number] BED: DIS: 06/21/2025 SPEC #: [id number] RECD: 06/21/25 13:12 STATUS: ADRIÁN REJayro #: [id number] BRAYAN: 06/21/25 11:[address]: Antoine Garduno DEPT: [facility] Cytology RECD BY: Ibeth Coy ENTERED: 06/21/25 13:13 SP TYPE: MANOJ GRIFFITH DR: Asuncion Muñoz Tissues: 1 - BODY FLUID CYTO-FINE NEEDLE ASPIRATE-[facility] 2 - BODY FLUID CYTO-FINE NEEDLE ASPIRATE-[facility] Procedures: BODY FLUID CYTO-FINE NEEDLE ASPIRATE-[facility] Comments: [id number] (PATH FNA CONSULT) (REFRIGERATED)
--- NOTE | 2025-06-21 11:58 | W.PROCNOTE ---
Date of service: 06/21/25 Time of Service: 11:59 Procedure Note Date of procedure: 06/21/25 Procedure: Ultrasound-guided FNA, left thyroid nodule x 2, pathology present Surgeon/Proceduralist/Physician: Antoine Garduno Procedure Diagnosis: Left thyroid nodules x 2 Procedure Indications: Patient with left thyroid nodules meeting criteria for biopsy. Options were explained to the patient regarding further management. He elected to undergo the above procedure. He discontinued his Eliquis 2 days ago. He notes no new concerns. Risks including bleeding, infection, failure to answer, need for further treatment were discussed at length. Written consent was obtained and the block was then performed. Procedure Description: The patient was positioned in a supine position with his neck slightly extended. He was prepped and draped in appropriate fashion and ultrasound used to localize first the larger nodule inferiorly. 2% lidocaine with 1/100,000 epinephrine was injected in the skin and subcutaneous tissues overlying the nodule and then a 25-gauge needle passed into the thyroid nodule, and used to collect a sample. This was handed to pathology who verified adequate cellularity. 2 additional passes were made for potential Afirma testing. Attention was then turned to the smaller deeper nodule. A 25-gauge needle was then passed into the deeper thyroid nodule, and a sample collected. Pathology verified adequate cellularity and then 2 additional passes were made for potential Afirma testing. Both sites revealed no significant bleeding. Following this, wound was inspected revealing no bleeding. Sterile dressings applied and the patient was allowed to sit, stand, and ambulate. His vital signs remained stable. He will remove the bandage in a couple of hours and not replace it. He will resume his Eliquis tonight. He will avoid anything strenuous today but may resume all activities tomorrow as he was doing prior to that. He will call with any concerns or problems or if he does not hear from me within 1 week. He may use Tylenol for any discomfort. He had no further questions. He is comfortable with this plan.
== END 2025-06-21 03:35 ==
LOC: DI 03:15
PROVIDERS: PCP Family Medicine; Visit Provider Otolaryngology
DX: E04.2 Nontoxic multinodular goiter (principal)
CPT/HCPCS: 10005; 10006; 76942; 88104

== ENCOUNTER 2025-07-16 06:53 | Emergency (ER) | payer MEDICARE, OTHER, SELFPAY ==
[2025-07-16 06:58] VITALS: BP 182/96; PULSE 72; RESP 18; TEMP 36.8; O2SAT 97
[2025-07-16] MEDS: Tranexamic Acid 1,000 MG/10 ML VIAL 1000 MG IVP (07:23)
--- NOTE | 2025-07-16 07:33 | ED.GENADUL_ITS ---
Discharge Plan Disposition Patient Disposition: Home Condition: Stable Discharge Details Clinical Impression: Epistaxis Primary Care Provider: Asuncion Muñoz ED Provider: Obed Bynum Home Meds and New Rx's Prescriptions: Continued amlodipine 5 mg tablet 5 mg PO DAILY losartan 25 mg tablet 25 mg PO DAILY multivitamin Tablet 1 tab PO DAILY glucosamine HCl 500 mg tablet 500 mg PO DAILY Rx Instructions: administer with a meal aspirin [Adult Aspirin Regimen] 81 mg tablet,delayed release (DR/EC) 81 mg PO DAILY Eliquis 5 mg tablet 5 mg PO BID Qty: 30 3RF Rx Instructions: Take 1 tablet by mouth twice daily atorvastatin 40 mg tablet 40 mg PO DAILY Qty: 90 0RF Discharge Instructions Additional Instructions: You had topical medication put in your nose and had no residual bleeding while here. You can use the Afrin spray in your nose twice a day for 3 days. If you have bleeding that you cannot stop using the nasal clamp return to the emergency department for reevaluation. Sometimes dry air can cause nosebleeds so having a humidifier can help prevent this. HPI General Mode of arrival: ambulatory . Date/Time Provider Initiated Documentation: 07/16/25 06:57 . Limitations to Documentation: no limitations . Information obtained by: patient . History of Present Illness 84 year old M presents to the emergency department with the chief complaint of nose bleed, described as moderate, Patient started experiencing this hour(s) (2) and it has been now resolved. No relieving factors improve symptom(s), No exacerbating factors reported . Patient notes no other symptoms.. Patient did receive the following treatments prior to arrival, none Related Data Home Medications ?Medication ?Instructions ?Recorded ?Confirmed glucosamine HCl 500 mg tablet 500 mg PO DAILY 07/29/23 07/16/25 losartan 25 mg tablet 25 mg PO DAILY 07/29/2306/25 multivitamin 1 tab PO DAILY 07/29/2306/25 amlodipine 5 mg tablet 5 mg PO DAILY 09/24/2307/16 aspirin 81 mg tablet,delayed 81 mg PO DAILY 03/17/25 0 07/16/25 release (Adult Aspirin Regimen) apixaban 5 mg tablet (Eliquis) 5 mg PO BID Atrial Fibr illation 04/09/25 07/16/25 #30 tabs atorvastatin 40 mg tablet 40 mg PO DAILY #90 tabs 03/2607/16/25 Previous Rx's ?Medication ?Instructions ?Recorded apixaban 5 mg tablet (Eliquis) 5 mg PO BID Atrial Fibr illation 04/09/25 #30 tabs atorvastatin 40 mg tablet 40 mg PO DAILY #90 tabs 03/26 12/18 Allergies Allergy/AdvReac Type Severity Reaction Status Date / Time lisinopril Allergy Mild Unknown Verified 07/16/25 07:03 NSAIDS (Non-Steroidal Allergy Unknown Verified 07/16/25 07:03 Anti-Inflamma penicillin V (Penicillin V) Allergy Unknown Verified 07/16/25 07:03 General Stated Complaint: Epistaxis DANIKA: 3 Review of Systems All systems reviewed & are unremarkable except as noted in HPI and below Constitutional Constitutional: Denies chills, Denies fever(s) and Denies weakness ENT Ears, Nose, Mouth, and Throat: Reports epistaxis and Denies sinus pain Respiratory Respiratory: Denies cough Gastrointestinal Gastrointestinal: Denies abdominal pain, Denies nausea and Denies vomiting Neurologic Neurologic: Denies weakness Exam Const General: no acute distress Orientation: alert [facility] Head: normal to inspection Ears: external ears normal General nose exam: external nose normal, no nasal polyps and septum normal Mouth: moist mucous membranes Eyes General: appearance normal, both eyes and all related structures Neck Neck: normal visual inspection Resp Effort & Inspection: normal respiratory effort and able to speak in complete sentences Cardio Rate: regular rate Skin General skin exam: no rashes or lesions noted Neuro General: patient alert and patient oriented x3 Extrem General: normal to inspection Psych Mental Status: mental status grossly normal Course Vital Signs Vital signs: Vital Signs Temperature 36.8 C 07/16/25 06:58 Pulse 72 07/16/25 06:58 Respiratory Rate 18 07/16/25 06:58 Blood Pressure 182/96 H 07/16/25 06:58 Pulse Oximetry 97 07/16/25 06:58 Temperature 36.8 C 07/16/25 06:58 Pulse 72 07/16/25 06:58 Respiratory Rate 18 07/16/25 06:58 Blood Pressure 182/96 H 07/16/25 06:58 Pulse Oximetry 97 07/16/25 06:58 Oxygen Delivery Method Room Air 07/16/25 06:58 Oxygen Flow Rate 0 07/16/25 06:58 Medical Decision Making 84-year-old male with a history of A-fib on Eliquis comes in with 2 hours of left-sided nosebleed. He says he woke up feeling well but then noticed he felt something coming out of his nose and realized it was blood. He has not felt lightheaded, no chest pain or difficulty breathing. Denies any recent facial trauma or sinus pain. On my evaluation the bleeding has stopped. Anterior nose on the left side is hyperemic compared to the right. There is no polyps or other deformities. plan to place topical TXA and reassess. With the packing and he has not had any residual bleeding. Do not feel packing with a Rhino Rocket is indicated. I will provide him with Afrin use for few days. 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 No problems noted. Sister Cancer Brother , HIV No problems noted. Brother Prostate cancer Brother Prostate cancer Brother Alcohol use disorder Son , Motorcycle accident. Diabetes Daughter Diabetes Social History Smoking/Tobacco Use Status: Never Smoking risk assessment performed?: Yes Alcohol Intake: never Drug use: Never Substance use type: does not use Housing: house Do you feel safe at home: Yes Do you feel safe in your relationship?: Yes
[2025-07-16 08:17] VITALS: PULSE 68; RESP 16; O2SAT 99
[2025-07-16] MEDS: Oxymetazolone 0.05% SPRAY 15 ML BTL NS (08:17)
[2025-07-16 08:23] VITALS: BP 140/90
== END 2025-07-16 08:24 | disposition home or self-care (01) ==
PROVIDERS: Emergency Provider Emergency Medicine; PCP Family Medicine
DX: R04.0 Epistaxis (principal); I10 Essential (primary) hypertension; Z79.01 Long term (current) use of anticoagulants
CPT/HCPCS: 30903

== ENCOUNTER 2025-08-01 08:55 | Outpatient (CLI) | payer MEDICARE, OTHER, SELFPAY ==
--- NOTE | 2025-08-01 | DI.CT_ITS ---
Exam(s) CT CHEST WO EXAM: CT CHEST WO CLINICAL HISTORY: ABNL FINDINGS R91.8 FU NODULES from 04/09/25 [facility] CTA. TECHNIQUE: Multi planar reconstructions were performed. CONTRAST MATERIAL: None COMPARISON: CT CT CHEST PE CTA from 04/09/2025 FINDINGS: CHEST: LUNGS: The previously described noncalcified nodule in the lateral aspect of the left upper lobe presently measures 1.4 cm AP which is slightly increased in size from 3 months ago. It again measures 12 mm wide and again measures 11 mm craniocaudal. There are no nodule seen in the left lower lobe. I also do not see nodule in left lower lobe when reviewing the CT images of 04/09/2025. In the opposite-right lung the previously described 9 x 8 mm nodule has significantly decreased in size, presently measuring 5 x 4 mm. There are no new additional right lung nodules. There are no confluent infiltrates and there are no pleural effusions on either side. No significant focal findings in the trachea and mainstem bronchi. MEDIASTINUM: There is no obvious hilar nor mediastinal adenopathy. Abnormally enlarged nodular left thyroid lobe again noted.No axillary nor supraclavicular adenopathy noted. CARDIAC: Aortic valve TAVR again noted. Heart size is upper normal. There is no pericardial effusion.Enlargement of the ascending thoracic aorta is again noted measuring up to 4.6 cm, similar to previous. The diameter of the mid aortic arch is 3.1 cm and the diameter of the proximal descending thoracic aorta is 3 cm. Diameter of the distal thoracic descending aorta is within normal limits. VISUALIZED UPPER ABDOMEN:No significant adrenal masses. Benign-appearing cysts are again noted in the liver. OSSEOUS: No significant osseous lesions.No fractures.. IMPRESSION: 1. Compared to the prior CT scan of 04/09/2025 there has been increase in size of the previously described left upper lobe nodule which previously measured 12 mm AP and presently measures 14 mm AP. No new left lung nodules. 2. Is interesting to note that the size of the 9 x 8 mm nodule in the right lower lobe has decreased to 5 x 4 mm. No new right lung nodules identified 3. No pleural effusions nor intrathoracic adenopathy 4. Enlarged and nodular left thyroid lobe again noted which can be further study with ultrasound. Also aortic valve TAVR, enlargement of the ascending thoracic aorta (again 4.6 cm) as well as enlargement of the aortic arch and proximal descending thoracic aorta. RADIATION DOSE DELIVERED: 240.85mGy.cm Total DLP DATA REPOSITORY: All CT scans at this facility are submitted to the National Radiology Data Registry (NRDR) Dose Index Registry (DIR) with the [employer] (A[employer]). RADIATION OPTIMIZATION: All CT scans at this facility use at least one of these dose optimization techniques: automated exposure control; mA and/or kV adjustment per patient size (includes targeted exams where dose is matched to clinical indication); or iterative reconstruction.
== END 2025-08-01 09:15 ==
PROVIDERS: PCP Family Medicine; Visit Provider Family Medicine
DX: R91.8 Other nonspecific abnormal finding of lung field (principal)
CPT/HCPCS: 71250

== ENCOUNTER 2025-10-03 09:57 | Outpatient (CLI) | payer MEDICARE, OTHER, SELFPAY ==
[2025-10-03 17:30] LABS: PSA, Diagnostic 3.5 ng/mL (<=6.5)
== END 2025-10-03 09:58 | disposition home or self-care (01) ==
LOC: LBO 09:57
PROVIDERS: PCP Family Medicine; Visit Provider Urology
DX: N40.1 Benign prostatic hyperplasia with lower urinary tract symptoms (principal)
CPT/HCPCS: 36415; 84153

== ENCOUNTER → 2025-10-11 08:07 | Outpatient (BNVA) | payer MEDICARE, OTHER, SELFPAY | PROVIDERS: PCP Family Medicine; Referring Provider Family Medicine; Visit Provider Urology | DX: N40.0 Benign prostatic hyperplasia without lower urinary tract symptoms (principal); R39.89 Other symptoms and signs involving the genitourinary system | CPT/HCPCS: 99213 ==